=== PATIENT | male | born 1955 | race Caucasian/White ===

== ENCOUNTER 2016-11-13 23:44 | Emergency (ER) | payer OTHER ==
[2016-11-13] MEDS ORDERED: valACYclovir HCL 1000 MG TABLET PO ONE (23:52)
[2016-11-13] MEDS ORDERED: ACETAMINOPHEN WITH CODEINE 300MG/30MG TABLET PO ONE (23:52)
[2016-11-13] MEDS ORDERED: ACYCLOVIR 400 MG TABLET ONE (23:54)
[2016-11-13] MEDS ORDERED: ACETAMINOPHEN WITH CODEINE 300MG/30MG TABLET ONE (23:54)
[2016-11-13] MEDS ORDERED: valACYclovir HCL 500 MG TABLET (FP) ONE (23:55)
[2016-11-13 23:56] VITALS: BP 144/92; PULSE 70; TEMP 97.8; BMI 34.2
--- NOTE | 2016-11-13 23:58 | PDOC ---
History of Present Illness - General Chief Complaint: Rash Stated Complaint: BURNING RASH Time Seen by Provider: 11/13/16 23:52 History Source: Patient Exam Limitations: No Limitations - History of Present Illness Initial Comments: 11/13/16 23:54 61 Y M HX HTN, BI-POLAR; ITCHY RASH ON LT CHEST FROM BACK TO NIPPLE SINCE SATURDAY. NOW PAIN (THROBBING). NO FEVER. NO SOB. NO OTHER SYMPTOMS Past History - Past Medical History Allergies/Adverse Reactions: Allergies Allergy/AdvReac Type Severity Reaction Status Date / Time No Known Allergies Allergy Verified 11/13/16 23:48 Home Medications: Ambulatory Orders Divalproex *ER* [Depakote *ER* -] 1,500 mg PO HS 05/08/13 Venlafaxine-Xr [Effexor Xr] 225 mg PO DAILY 05/08/13 Mirabegron [Myrbetriq] 50 mg PO DAILY 10/06/15 Aspirin Coated [Ecotrin -] 81 mg PO DAILY 03/05/16 Risperidone [Risperdal] 1 mg PO BID 03/05/16 Cholecalciferol (Vitamin D3) [Vitamin D3] 2,000 unit PO DAILY capsule 09/24/16 Valacyclovir HCl [Valtrex -] 1,000 mg PO TID #7 tablet 11/13/16 Anemia: No Asthma: No Cancer: Yes (Prostate Dx 02/2016) Cardiac Disorders: Yes (Angina) CVA: No COPD: No CHF: No Dementia: No Diabetes: No GI Disorders: Yes (Diverticulitis) Disorders: Yes (BPH OVERACTIVE BLADDER,PROSTATE CA) HTN: Yes (DX 2010) Hypercholesterolemia: Yes (DX 1995) Liver Disease: No Psychiatric Problems: Yes (BIPOLAR) Seizures: No Thyroid Disease: No - Surgical History Abdominal Surgery: No Appendectomy: No Cardiac Surgery: No (Cardiac Cath 2012) Cholecystectomy: No Lung Surgery: No Neurologic Surgery: No Orthopedic Surgery: Yes (Left Foot Surgery) - Psycho/Social/Smoking Cessation Hx Anxiety: No Suicidal Ideation: No Smoking History: Never smoked Have you smoked in the past 12 months: No Hx Alcohol Use: No Drug/Substance Use Hx: No Substance Use Type: None Hx Substance Use Treatment: No Review of Systems - Review of Systems Able to Perform ROS?: Yes Is the patient limited Swedish proficient: No Constitutional: No: Symptoms Reported HEENTM: No: Symptoms Reported Respiratory: No: Symptoms reported Cardiac (ROS): No: Symptoms Reported ABD/GI: No: Symptoms Reported : No: Symptoms Reported Musculoskeletal: No: Symptoms Reported Integumentary: Yes: Symptoms Reported, See HPI All Other Systems: Reviewed and Negative *Physical Exam - Physical Exam General Appearance: Yes: Nourished, Appropriately Dressed. No: Apparent Distress HEENT: positive: Normal ENT Inspection Neck: positive: Supple. negative: Tender Respiratory/Chest: positive: Chest Tender (T4 DERMATOME), Lungs Clear, Normal Breath Sounds. negative: Respiratory Distress Cardiovascular: positive: Regular Rhythm, Regular Rate Integumentary: positive: Rash (ERYTHEMATOUS RASH T4 DERMATOME. NO BLISTERS. INVOLVING LT NIPPLE) Neurologic: positive: Fully Oriented, Alert, Normal Mood/Affect, Normal Response , Motor Strength 5/5 *DC/Admit/Observation/Transfer Diagnosis at time of Disposition: Herpes zoster Qualifiers: Herpes zoster complications: without complications Qualified Code(s): B02.9 - Zoster without complications - Discharge Dispostion Disposition: HOME Condition at time of disposition: Stable - Prescriptions Prescriptions: Valacyclovir HCl [Valtrex -] 1,000 mg PO TID #7 tablet - Patient Instructions Additional Instructions: TAKE MEDICATIONS PRESCRIBED CALL DR. FERREIRA TOMORROW RETURN IF FEVER, NEW RASHES.
== END 2016-11-14 | disposition home or self-care (01) ==
LOC: FER 23:44
DX: B02.9 Zoster without complications (principal); F31.9 Bipolar disorder, unspecified; Z85.46 Personal history of malignant neoplasm of prostate; I10 Essential (primary) hypertension; E78.00 Pure hypercholesterolemia, unspecified; I20.9 Angina pectoris, unspecified; N40.0 Benign prostatic hyperplasia without lower urinary tract symptoms
CPT/HCPCS: 99281-25

== ENCOUNTER 2018-06-16 09:02 | Day surgery (SDC) | payer BC ==
[2018-06-12 10:56] VITALS: BMI 34.9
[2018-06-16] MEDS ORDERED: PROPOFOL 20 ML ONE ×2 (09:09)
[2018-06-16] MEDS ORDERED: LIDOCAINE HCL/PF 2% SDV 5ML VIAL ONE (09:10)
[2018-06-16 11:09] VITALS: TEMP 98.4
[2018-06-16 11:15] VITALS: BP 118/72; PULSE 72
== END 2018-06-16 11:19 | disposition home or self-care (01) ==
LOC: FASU-ENDO 09:02
PROVIDERS: ATTEND Internal Medicine Gastroenterology
PROC: 0DJD8ZZ Inspection of Lower Intestinal Tract, Via Natural or Artificial Opening Endoscopic (ICD-10-PCS; principal; 2018-06-16 10:08)
DX: Z12.11 Encounter for screening for malignant neoplasm of colon (principal); Z80.0 Family history of malignant neoplasm of digestive organs; Z83.71 Family history of colonic polyps; K57.30 Diverticulosis of large intestine without perforation or abscess without bleeding

== ENCOUNTER 2019-08-27 18:45 | Inpatient (IN) | payer BC ==
[2019-08-27 18:58] VITALS: BMI 36.9
[2019-08-27 19:32] LABS: BASO % 0.5 % (0-2.0); EOS % 4.1 % (0-4.5); HEMATOCRIT 40.9 % (35.4-49); HEMOGLOBIN 13.7 GM/dl (11.7-16.9); LYMPH % 24.4 % (8-40); MCH 31.8 pg (25.7-33.7); MCHC 33.6 g/dl (32.0-35.9); MEAN CELL VOLUME 94.7 fl (80-96); MEAN PLT VOLUME 8.8 fl (7.5-11.1); PLATELET COUNT 248 K/MM3 (134-434); RBC 4.32 M/mm3 (4.00-5.60); WHITE BLOOD COUNT 6.3 K/mm3 (4.0-10.8)
[2019-08-27 19:41] LABS: ALBUMIN 3.8 g/dl (3.4-5.0); BILIRUBIN,TOTAL 0.5 mg/dl (0.2-1); CREATININE 0.8 mg/dl (0.55-1.3); POTASSIUM 4.3 mmol/L (3.5-5.1); TOT PROT 6.6 g/dl (6.4-8.2)
--- NOTE | 2019-08-27 21:44 | PDOC ---
Documentation entered by Anya Jennings SCRIBE, acting as scribe for Nathaly Brasher MD. Nathaly Brasher MD: This documentation has been prepared by the myibe, Anya Jennings SCRIBE, under my direction and personally reviewed by me in its entirety. I confirm that the documentation accurately reflects all work, treatment, procedures, and medical decision making performed by me. History of Present Illness - General Chief Complaint: Lightheaded Stated Complaint: NAUSEA, LIGHTHEADED Time Seen by Provider: 08/27/19 19:18 History Source: Patient Exam Limitations: No Limitations - History of Present Illness Initial Comments: 08/27/19 21:02 The patient is a 64-year-old male with a past medical history significant for HTN, Bipolar disorder, HLD, pre-DM, who presents to the emergency department with abdominal discomfort, lightheadedness, and diaphoretic. The patient reports on Saturday he was at work when his boss told him that he looked pale and sweaty. The patient reports later that day he was waiting for the train when he took off his jacket, noticed he has sweated through his clothes. The patient reports a similar incident on Saturday when he was at [employer]abaptism, the patient states he felt clammy and had abdominal discomfort. The patient reports all he had to eat Saturday was some salad. The patient reports he had some chills yesterday. The patient states since this morning, hes been feeling heaviness on his eyes, fogginess, dizziness, nauseous (this morning), intermittent episodes of abdominal upsetting, and the feeling that something is not right. The patient reports following up with his PCP for palpitation. He was referred to a lip and gate builder (Dr. Lau), where he had an echo and stress test done ( 6wks ago). The patient reports he was told he needed a holter monitor, however states the office never called to make an appointment. Denies chest pain. Denies vomiting or diarrhea. Allergies: NKA Family history: Heart problems. Social history: Remote history of tobacco use. PCP: Dr. West Cards: Dr. Lau Past History - Past Medical History Allergies/Adverse Reactions: Allergies Allergy/AdvReac Type Severity Reaction Status Date / Time No Known Allergies Allergy Verified 08/27/19 18:49 Home Medications: Ambulatory Orders Divalproex *ER* [Depakote *ER* -] 1,500 mg PO DAILY 05/08/13 Venlafaxine-Xr [Effexor Xr] 150 mg PO DAILY 05/08/13 Aspirin Coated [Ecotrin -] 81 mg PO DAILY 03/05/16 Risperidone [Risperdal] 1 mg PO BID 03/05/16 Cholecalciferol (Vitamin D3) [Vitamin D3] 2,000 unit PO DAILY capsule 09/24/16 Atorvastatin Ca [Lipitor] 20 mg PO HS 06/12/18 Anemia: No Asthma: No Cancer: Yes (Prostate Dx 02/2016) Cardiac Disorders: Yes (Angina) CVA: No COPD: No CHF: No Dementia: No Diabetes: No GI Disorders: Yes (Diverticulitis) Disorders: Yes (BPH OVERACTIVE BLADDER,PROSTATE CA) HTN: Yes (DX 2010) Hypercholesterolemia: Yes (DX 1995) Liver Disease: No Psychiatric Problems: Yes (BIPOLAR) Seizures: No Thyroid Disease: No - Surgical History Abdominal Surgery: No Appendectomy: No Cardiac Surgery: (Cardiac Cath 2012) Cholecystectomy: No Lung Surgery: No Neurologic Surgery: No Orthopedic Surgery: Yes (Left Foot Surgery,RIGHT TOE SURGERY) - Psycho Social/Smoking Cessation Hx Smoking History: Never smoked Have you smoked in the past 12 months: No Information on smoking cessation initiated: No Hx Alcohol Use: No (STOPPED AT 39 YRS OF AGE) Drug/Substance Use Hx: No Substance Use Type: None Hx Substance Use Treatment: No Review of Systems - Review of Systems Able to Perform ROS?: Yes Comments:: 08/27/19 21:03 Constitutional - +diaphoretic. Pt denies Fever, Chills, weakness, HEENT: +eye heaviness. denies vision changes, sore throat Respiratory: Denies cough, sob, hemoptysis Cardiac: denies chest pain, palpitations, lightheadedness, leg swelling Abd/GI: +abdominal discomfort and nausea. denies abd pain, vomiting, blood per rectum, melena, diarrhea : denies dysuria, frequency, discharge Musculoskeletal - denies back pain, joint swelling skin - denies bruising, erythema, rash Neurological: +lightheadedness, fogginess. denies headache, numbness, focal weakness, tingling, ataxia, weakness hematologic: denies anemia, easy bruising, easy bleeding *Physical Exam - Vital Signs Last Vital Signs Temp Pulse Resp BP Pulse Ox 98.4 F 74 18 117/76 98 08/27/19 18:45 08/27/19 18:45 08/27/19 18:45 08/27/19 18:45 08/27/19 18:45 - Physical Exam 08/27/19 20:33 GENERAL: Awake, alert and oriented. The patient is in no acute distress. ENT: Ears normal, nares patent, oropharynx clear without exudates. Moist mucous membranes. NECK: Normal range of motion, supple, no nuchal rigidity LUNGS: Breath sounds equal, clear to auscultation bilaterally. No wheezes, and no crackles. HEART: Regular rate and rhythm, normal S1 and S2 without murmur, rub or gallop. ABDOMEN: Soft, nontender, normoactive bowel sounds. No guarding, no rebound. No masses palpable. EXTREMITIES: Normal range of motion, no edema. NEUROLOGICAL: Answering all questions. Cranial nerves II through XII grossly intact. Normal speech. No focal neurological deficits. SKIN: Warm, Dry, normal turgor, no rashes or lesions noted. ED Treatment Course - LABORATORY CBC & Chemistry Diagram: 08/27/19 19:15 08/27/19 19:15 - ADDITIONAL ORDERS Additional order review: Laboratory Results 08/27/19 08/27/19 19:30 19:15 Sodium 137 Potassium 4.3 Chloride 104 Carbon Dioxide 27 Anion Gap 6 L BUN 16.0 Creatinine 0.8 Est GFR (CKD-EPI)AfAm 109.42 Est GFR (CKD-EPI)NonAf 94.41 Random Glucose 86 Calcium 9.0 Total Bilirubin 0.5 AST 27 ALT 51 Alkaline Phosphatase 41 L Creatine Kinase 82 Total Protein 6.6 Albumin 3.8 Urine Color Yellow Urine Appearance Clear Urine pH 5.5 Urine Protein Negative Urine Glucose (UA) Negative Urine Ketones Negative Urine Blood Trace-lysed Urine Nitrite Negative Urine Bilirubin Negative Urine Urobilinogen 0.2 Ur Leukocyte Esterase Negative Urine RBC 2-5 Urine WBC 0-2 08/27/19 19:15 RBC 4.32 MCV 94.7 MCHC 33.6 RDW 13.0 MPV 8.8 Neutrophils % 60.0 Lymphocytes % 24.4 Monocytes % 11.0 H Eosinophils % 4.1 Basophils % 0.5 Medical Decision Making - Medical Decision Making 08/27/19 19:59 EKG: NSR rate of 68 bpm, axis nml, intervals nml, no st elevation or depression , t waves upright 08/28/19 02:31 Laboratory Tests 08/27/19 08/27/19 08/27/19 19:15 19:15 19:15 Hgb 13.7 Hct 40.9 Creatine Kinase 82 Troponin I < 0.03 Lipase 08/27/19 19:15 Hgb Hct Creatine Kinase Troponin I Lipase 449 H Labs reveal elevated lipase Pt with new symptoms of diaphoresis and upper abdominal pain Will admit given pt risk factors and the possibility that this is an anginal equivalent Case reviewed with NILDA Tadeo She recommends CT scan (Given elevation in Lipase) Will order Clinical impression: Pre-syncope Elevated lipase Discharge - Discharge Information Problems reviewed: Yes Clinical Impression/Diagnosis: Pre-syncope, Elevated lipase Condition: Stable - Admission Yes - Follow up/Referral - Patient Discharge Instructions - Post Discharge Activity
--- NOTE | 2019-08-27 22:43 | HP ---
CHIEF COMPLAINT: PCP: HISTORY OF PRESENT ILLNESS: ER course was notable for: (1) (2) (3) Recent Travel: PAST MEDICAL HISTORY: PAST SURGICAL HISTORY: Social History: Smoking: Alcohol: Drugs: Allergies No Known Allergies Allergy (Verified 08/27/19 18:49) HOME MEDICATIONS: Home Medications Medication Instructions Recorded Divalproex *ER* [Depakote *ER* -] 1,500 mg PO DAILY 05/08/13 Venlafaxine-Xr [Effexor Xr] 150 mg PO DAILY 05/08/13 Aspirin Coated [Ecotrin -] 81 mg PO DAILY 03/05/16 Risperidone [Risperdal] 1 mg PO BID 03/05/16 Cholecalciferol (Vitamin D3) 2,000 unit PO DAILY capsule 09/24/16 [Vitamin D3] Atorvastatin Ca [Lipitor] 20 mg PO HS 06/12/18 REVIEW OF SYSTEMS CONSTITUTIONAL: Absent: fever, chills, diaphoresis, generalized weakness, malaise, loss of appetite, weight change HEENT: Absent: rhinorrhea, nasal congestion, throat pain, throat swelling, difficulty swallowing, mouth swelling, ear pain, eye pain, visual changes CARDIOVASCULAR: Absent: chest pain, syncope, palpitations, irregular heart rate, lightheadedness , peripheral edema RESPIRATORY: Absent: cough, shortness of breath, dyspnea with exertion, orthopnea, wheezing, stridor, hemoptysis GASTROINTESTINAL: Absent: abdominal pain, abdominal distension, nausea, vomiting, diarrhea, constipation, melena, hematochezia GENITOURINARY: Absent: dysuria, frequency, urgency, hesitancy, hematuria, flank pain, genital pain MUSCULOSKELETAL: Absent: myalgia, arthralgia, joint swelling, back pain, neck pain SKIN: Absent: rash, itching, pallor HEMATOLOGIC/IMMUNOLOGIC: Absent: easy bleeding, easy bruising, lymphadenopathy, frequent infections ENDOCRINE: Absent: unexplained weight gain, unexplained weight loss, heat intolerance, cold intolerance NEUROLOGIC: Absent: headache, focal weakness or paresthesias, dizziness, unsteady gait, seizure, mental status changes, bladder or bowel incontinence PSYCHIATRIC: Absent: anxiety, depression, suicidal or homicidal ideation, hallucinations. PHYSICAL EXAMINATION Vital Signs - 24 hr 08/27/19 08/27/19 18:45 21:08 Temperature 98.4 F 97.8 F Pulse Rate 74 Pulse Rate [ 69 Left Apical] Respiratory 18 16 Rate Blood Pressure 117/76 Blood Pressure 107/58 L [Right Arm] O2 Sat by Pulse 98 98 Oximetry (%) GENERAL: Awake, alert, and fully oriented, in no acute distress. HEAD: Normal with no signs of trauma. EYES: Pupils equal, round and reactive to light, extraocular movements intact, sclera anicteric, conjunctiva clear. No lid lag. EARS, NOSE, THROAT: Ears normal, nares patent, oropharynx clear without exudates. Moist mucous membranes. NECK: Normal range of motion, supple without lymphadenopathy, JVD, or masses. LUNGS: Breath sounds equal, clear to auscultation bilaterally. No wheezes, and no crackles. No accessory muscle use. HEART: Regular rate and rhythm, normal S1 and S2 without murmur, rub or gallop. ABDOMEN: Soft, nontender, not distended, normoactive bowel sounds, no guarding, no rebound, no masses. No hepatomegaly or splenomegaly. MUSCULOSKELETAL: Normal range of motion at all joints. No bony deformities or tenderness. No CVA tenderness. UPPER EXTREMITIES: 2+ pulses, warm, well-perfused. No cyanosis. No clubbing. No peripheral edema. LOWER EXTREMITIES: 2+ pulses, warm, well-perfused. No calf tenderness. No peripheral edema. NEUROLOGICAL: Cranial nerves II-XII intact. Normal speech. Normal gait. PSYCHIATRIC: Cooperative. Good eye contact. Appropriate mood and affect. SKIN: Warm, dry, normal turgor, no rashes or lesions noted, normal capillary refill. Laboratory Results - last 24 hr 08/27/19 08/27/19 08/27/19 19:15 19:15 19:15 WBC 6.3 RBC 4.32 Hgb 13.7 Hct 40.9 MCV 94.7 MCH 31.8 MCHC 33.6 RDW 13.0 Plt Count 248 MPV 8.8 Absolute Neuts (auto) 3.8 Neutrophils % 60.0 Lymphocytes % 24.4 Monocytes % 11.0 H Eosinophils % 4.1 Basophils % 0.5 Sodium 137 Potassium 4.3 Chloride 104 Carbon Dioxide 27 Anion Gap 6 L BUN 16.0 Creatinine 0.8 Est GFR (CKD-EPI)AfAm 109.42 Est GFR (CKD-EPI)NonAf 94.41 Random Glucose 86 Calcium 9.0 Total Bilirubin 0.5 AST 27 ALT 51 Alkaline Phosphatase 41 L Creatine Kinase 82 Troponin I < 0.03 Total Protein 6.6 Albumin 3.8 Lipase Urine Color Urine Appearance Urine pH Urine Protein Urine Glucose (UA) Urine Ketones Urine Blood Urine Nitrite Urine Bilirubin Urine Urobilinogen Ur Leukocyte Esterase Urine RBC Urine WBC 08/27/19 08/27/19 19:15 19:30 WBC RBC Hgb Hct MCV MCH MCHC RDW Plt Count MPV Absolute Neuts (auto) Neutrophils % Lymphocytes % Monocytes % Eosinophils % Basophils % Sodium Potassium Chloride Carbon Dioxide Anion Gap BUN Creatinine Est GFR (CKD-EPI)AfAm Est GFR (CKD-EPI)NonAf Random Glucose Calcium Total Bilirubin AST ALT Alkaline Phosphatase Creatine Kinase Troponin I Total Protein Albumin Lipase 449 H Urine Color Yellow Urine Appearance Clear Urine pH 5.5 Urine Protein Negative Urine Glucose (UA) Negative Urine Ketones Negative Urine Blood Trace-lysed Urine Nitrite Negative Urine Bilirubin Negative Urine Urobilinogen 0.2 Ur Leukocyte Esterase Negative Urine RBC 2-5 Urine WBC 0-2 ASSESSMENT/PLAN:
[2019-08-27] MEDS ORDERED: SODIUM CHLORIDE 1,000 ML IV SCH (23:45)
[2019-08-28] MEDS: HEPARIN NA (PORCINE) 5,000 UNITS/ML 1ML VIAL SQ SCH ×3 (06:27→21:42)
[2019-08-28 07:44] LABS: BASO % 0.5 % (0-2.0); EOS % 4.1 % (0-4.5); HEMATOCRIT 41.9 % (35.4-49); HEMOGLOBIN 13.5 GM/dl (11.7-16.9); LYMPH % 24.2 % (8-40); MCH 30.7 pg (25.7-33.7); MCHC 32.2 g/dl (32.0-35.9); MEAN CELL VOLUME 95.3 fl (80-96); MEAN PLT VOLUME 8.8 fl (7.5-11.1); MONO % 10.8 % (3.8-10.2); NEUT % 60.4 % (42.8-82.8); PLATELET COUNT 243 K/MM3 (134-434); WHITE BLOOD COUNT 6.3 K/mm3 (4.0-10.8)
[2019-08-28 08:03] LABS: CALCIUM 9.1 mg/dl (8.5-10); CREATININE 0.8 mg/dl (0.55-1.3); MAGNESIUM 2.1 mg/dL (1.8-2.4)
[2019-08-28] MEDS ORDERED: VENLAFAXINE HCL 150 MG E.R. CAPSULE PO SCH (10:00)
[2019-08-28] MEDS: risperiDONE 1 MG TABLET (FP) PO SCH ×2 (10:11→21:42)
[2019-08-28] MEDS: VALSARTAN 80 MG TABLET (UD) PO SCH (10:11)
[2019-08-28] MEDS: FENOFIBRIC ACID 135 MG CAP PO SCH (10:11)
[2019-08-28] MEDS: DIVALPROEX NA *ER* EXTEND REL 500 MG TABLET.SA (FP) PO SCH (10:12)
[2019-08-28] MEDS: VENLAFAXINE HCL 75 MG E.R. CAPSULES (FP) PO SCH (10:12)
[2019-08-28] MEDS: ASPIRIN COATED 81 MG TABLET.EC PO SCH (10:12)
--- NOTE | 2019-08-28 13:26 | EKG ---
Test Reason : Blood Pressure : / mmHG Vent. Rate : 068 BPM Atrial Rate : 068 BPM P-R Int : 174 ms QRS Dur : 088 ms QT Int : 390 ms P-R-T Axes : 035 046 053 degrees QTc Int : 414 ms NORMAL SINUS RHYTHM NORMAL ECG NO PREVIOUS ECGS AVAILABLE Confirmed by CORKY BROWN MD ([id number]) on 08/28/2019 1:25:59 PM Referred By: DR CARPENTER Confirmed By:CORKY BROWN MD
--- NOTE | 2019-08-28 14:03 | HP ---
Documentation entered by Ashlee Christianson SCRIBE, acting as scribe for Sabina Tadeo NP. CHIEF COMPLAINT: PCP: Dr. West Cardiology: Dr. Lau HISTORY OF PRESENT ILLNESS: The patient is a 64-year-old male with a PMH significant for HTN, HLD, orthostatic hypotension, s/p cardiac cath 2013 (reportedly clean coronaries), diverticulitis, BPH, bipolar disorder, and remote substance abuse. Patient presented to the ED for several episodes of nausea, lightheadedness, and diaphoresis over the past 5 days. On Saturday afternoon patient was at work when his boss said he looked very pale and was sweating profusely. Patient states he always sweats a lot so this did not strike him as out of the ordinary but he did notice he sweat through his clothes. On Saturday morning he was at [employer] when he started feeling clammy, nauseous, and felt like he was going to pass out. Yesterday patient got up to go to work, and when stepping out of the shower he felt the same symptoms of nausea and lightheadedness. He laid down for awhile, and then decided to come to the ED. Six weeks ago patient had an echo and stress test with Dr. Lau and was told he should have Holter monitoring. He called the tacking machine operator's office several times but the arrangements were never made. Patient had a syncopal episode about 30 years ago and was diagnosed with orthostatic hypotension after a positive tilt table test. He cannot recall if he was put on medication. Patient denies fever, sweats, chills. Denies abdominal pain, vomiting, diarrhea , constipation. Denies chest pain, palpitations, SOB, MCKEON, orthopnea, and lower extremity swelling. Denies recent illness. Denies recent prescription medication changes. Denies changes in speech, gait, paresthesias, weakness, no reported neuro focal deficits. ER course was notable for: (1) Troponin neg x 3 (2) CTAP: unremarkable Family History: Mother (age 80) of diverticulitis Father (age 72) of CAD and diabetes Older brothers both had open heart surgery and have pacemakers. 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 Allergies No Known Allergies Allergy (Verified 08/27/19 18:49) HOME MEDICATIONS: Home Medications Medication Instructions Recorded Divalproex *ER* [Depakote *ER* -] 1,500 mg PO DAILY 05/08/13 Venlafaxine-Xr [Effexor Xr] 150 mg PO DAILY 05/08/13 Aspirin Coated [Ecotrin -] 81 mg PO DAILY 03/05/16 Risperidone [Risperdal] 1 mg PO BID 03/05/16 Cholecalciferol (Vitamin D3) 2,000 unit PO DAILY capsule 09/24/16 [Vitamin D3] Atorvastatin Ca [Lipitor] 20 mg PO HS 06/12/18 REVIEW OF SYSTEMS CONSTITUTIONAL: Absent: fever, chills, generalized weakness, , weight change HEENT: Absent: rhinorrhea, nasal congestion, throat pain, throat swelling, difficulty swallowing, mouth swelling, ear pain, eye pain, visual changes CARDIOVASCULAR: +diaphoresis, lightheadedness Absent: chest pain, syncope, palpitations, irregular heart rate, lightheadedness , peripheral edema RESPIRATORY: Absent: cough, shortness of breath, dyspnea with exertion, orthopnea, wheezing, stridor, hemoptysis GASTROINTESTINAL: +nausea, early satiety Absent: abdominal distension, vomiting, diarrhea, constipation, melena, hematochezia GENITOURINARY: Absent: dysuria, frequency, urgency, hesitancy, hematuria, flank pain, genital pain MUSCULOSKELETAL: Absent: myalgia, arthralgia, joint swelling, back pain, neck pain SKIN: Absent: rash, itching, pallor HEMATOLOGIC/IMMUNOLOGIC: Absent: easy bleeding, easy bruising, lymphadenopathy, frequent infections ENDOCRINE: Absent: unexplained weight gain, unexplained weight loss, heat intolerance, cold intolerance NEUROLOGIC: Absent: headache, focal weakness or paresthesias, dizziness, unsteady gait, seizure, mental status changes, bladder or bowel incontinence PSYCHIATRIC: Absent: anxiety, depression, suicidal or homicidal ideation, hallucinations. PHYSICAL EXAMINATION Vital Signs - 24 hr 08/27/19 08/27/19 08/27/19 18:45 21:08 23:45 Temperature 98.4 F 97.8 F 98.1 F Pulse Rate 74 69 Pulse Rate [ 69 Left Apical] Respiratory 18 16 18 Rate Blood Pressure 117/76 139/70 Blood Pressure 107/58 L [Right Arm] O2 Sat by Pulse 98 98 Oximetry (%) 08/28/19 08/28/19 04:00 08:24 Temperature 97.9 F Pulse Rate 65 Pulse Rate [ Left Apical] Respiratory 18 18 Rate Blood Pressure 132/72 Blood Pressure [Right Arm] O2 Sat by Pulse 96 96 Oximetry (%) GENERAL: A&Ox3, in no apparent distress. Answers questions appropriately. Pale, appears fatigued. HEAD: Normal with no signs of trauma. EYES: Pupils equal, round and reactive to light, extraocular movements intact, sclera anicteric, conjunctiva clear. No lid lag. EARS, NOSE, THROAT: Ears normal, nares patent, oropharynx clear without exudates. Moist mucous membranes. LUNGS: Breath sounds equal, clear to auscultation bilaterally. No wheezes, and no crackles. No accessory muscle use. HEART: Regular rate and rhythm, normal S1 and S2 ABDOMEN: Soft, nontender, not distended, normoactive bowel sounds, no guarding, no rebound tenderness UPPER EXTREMITIES: 2+ pulses, warm, well-perfused. No cyanosis. No clubbing. No peripheral edema. LOWER EXTREMITIES: 2+ pulses, warm, well-perfused. No calf tenderness. No peripheral edema. NEUROLOGICAL: Cranial nerves II-XII intact. Normal speech. Gait was not observed. SKIN: Warm, sweaty Laboratory Results - last 24 hr 08/27/19 08/27/19 08/27/19 19:15 19:15 19:15 WBC 6.3 RBC 4.32 Hgb 13.7 Hct 40.9 MCV 94.7 MCH 31.8 MCHC 33.6 RDW 13.0 Plt Count 248 MPV 8.8 Absolute Neuts (auto) 3.8 Neutrophils % 60.0 Lymphocytes % 24.4 Monocytes % 11.0 H Eosinophils % 4.1 Basophils % 0.5 Sodium 137 Potassium 4.3 Chloride 104 Carbon Dioxide 27 Anion Gap 6 L BUN 16.0 Creatinine 0.8 Est GFR (CKD-EPI)AfAm 109.42 Est GFR (CKD-EPI)NonAf 94.41 POC Glucometer Random Glucose 86 Calcium 9.0 Magnesium Total Bilirubin 0.5 AST 27 ALT 51 Alkaline Phosphatase 41 L Creatine Kinase 82 Troponin I < 0.03 Total Protein 6.6 Albumin 3.8 Lipase Urine Color Urine Appearance Urine pH Urine Protein Urine Glucose (UA) Urine Ketones Urine Blood Urine Nitrite Urine Bilirubin Urine Urobilinogen Ur Leukocyte Esterase Urine RBC Urine WBC 08/27/19 08/27/19 08/28/19 19:15 19:30 01:22 WBC RBC Hgb Hct MCV MCH MCHC RDW Plt Count MPV Absolute Neuts (auto) Neutrophils % Lymphocytes % Monocytes % Eosinophils % Basophils % Sodium Potassium Chloride Carbon Dioxide Anion Gap BUN Creatinine Est GFR (CKD-EPI)AfAm Est GFR (CKD-EPI)NonAf POC Glucometer Random Glucose Calcium Magnesium Total Bilirubin AST ALT Alkaline Phosphatase Creatine Kinase Troponin I < 0.02 Total Protein Albumin Lipase 449 H Urine Color Yellow Urine Appearance Clear Urine pH 5.5 Urine Protein Negative Urine Glucose (UA) Negative Urine Ketones Negative Urine Blood Trace-lysed Urine Nitrite Negative Urine Bilirubin Negative Urine Urobilinogen 0.2 Ur Leukocyte Esterase Negative Urine RBC 2-5 Urine WBC 0-2 08/28/19 08/28/19 08/28/19 06:24 06:52 06:52 WBC 6.3 RBC 4.40 Hgb 13.5 Hct 41.9 MCV 95.3 MCH 30.7 MCHC 32.2 RDW 13.0 Plt Count 243 MPV 8.8 Absolute Neuts (auto) 3.8 Neutrophils % 60.4 Lymphocytes % 24.2 Monocytes % 10.8 H Eosinophils % 4.1 Basophils % 0.5 Sodium 137 Potassium 4.0 Chloride 105 Carbon Dioxide 25 Anion Gap 7 L BUN 16.0 Creatinine 0.8 Est GFR (CKD-EPI)AfAm 109.42 Est GFR (CKD-EPI)NonAf 94.41 POC Glucometer 87 Random Glucose 87 Calcium 9.1 Magnesium 2.1 Total Bilirubin AST ALT Alkaline Phosphatase Creatine Kinase Troponin I Total Protein Albumin Lipase Urine Color Urine Appearance Urine pH Urine Protein Urine Glucose (UA) Urine Ketones Urine Blood Urine Nitrite Urine Bilirubin Urine Urobilinogen Ur Leukocyte Esterase Urine RBC Urine WBC 08/28/19 08:20 WBC RBC Hgb Hct MCV MCH MCHC RDW Plt Count MPV Absolute Neuts (auto) Neutrophils % Lymphocytes % Monocytes % Eosinophils % Basophils % Sodium Potassium Chloride Carbon Dioxide Anion Gap BUN Creatinine Est GFR (CKD-EPI)AfAm Est GFR (CKD-EPI)NonAf POC Glucometer Random Glucose Calcium Magnesium Total Bilirubin AST ALT Alkaline Phosphatase Creatine Kinase Troponin I < 0.03 Total Protein Albumin Lipase Urine Color Urine Appearance Urine pH Urine Protein Urine Glucose (UA) Urine Ketones Urine Blood Urine Nitrite Urine Bilirubin Urine Urobilinogen Ur Leukocyte Esterase Urine RBC Urine WBC ASSESSMENT/PLAN: 64-year-old male with a PMH significant for HTN, HLD, orthostatic hypotension, s /p cardiac cath 2013 (reportedly clean coronaries), diverticulitis, BPH, bipolar disorder, and remote substance abuse. Admitted for several near syncopal episodes. Near syncope Assessment --three episodes over past 5 days --troponins negative x 3 --ECG: no signs of acute ischemic event --Echo and stress done 6 weeks ago, apparently unremarkable --CTAP: no acute pathology --no fever, no leukocytosis, UA negative, CXR clear Plan --continuous telemetry monitoring --cardiology consult --CT head --US carotids --thyroid studies --rapid flu Orthostatic hypotension --diagnosed about 30 years ago after a positive tilt table test, has not been on medication --not orthostatic this morning Hypertension --continue ToprolXL Hyperlipidemia --continue atorvastatin Diverticulitis --no issues BPH --continue tamsulosin Bipolar disorder --continue depakote, risperdal --no recent medication changes FEN Fluids: PO intake adequate Electrolytes: replete as indicated Nutrition: regular diet DVT prophylaxis: subq heparin Dispo: continues to require inpatient care. Full code. Visit type - Emergency Visit Emergency Visit: Yes ED Registration Date: 08/27/19 Care time: The patient presented to the Emergency Department on the above date and was hospitalized for further evaluation of their emergent condition. - New Patient This patient is new to me today: Yes Date on this admission: 08/28/19 - Critical Care Critical Care patient: No Sabina Tadeo PLANNER SCHEDULER: This documentation has been prepared by the Sammy stephen Maria, SCRIBE, under my direction and personally reviewed by me in its entirety. I confirm that the documentation accurately reflects all work, treatment, procedures, and medical decision making performed by me.
--- NOTE | 2019-08-28 14:28 | CON.CARD ---
Consult Consult Specialty:: Cardiology Referred by:: Medicine Reason for Consultation:: dizziness - History of Present Illness Chief Complaint: dizziness History of Present Illness: 64M h/o HTN, HLD, orthostatic hypotension, bipolar disorder p/w nausea, near syncope, diaphoresis for the last week. Has had episodes where he feels clammy , nauseated and about to pass out, no syncope, vomiting, diarrhea. Recently had echo and stress test with Dr Lau that were unremarkable, holter monitor planned but not done yet. Currently feels clammy, no chest pain, palps , dizziness, dyspnea. - Alcohol/Substance Use Hx Alcohol Use: No (STOPPED AT 39 YRS OF AGE) - Smoking History Smoking history: Never smoked Have you smoked in the past 12 months: No Home Medications - Allergies Allergies/Adverse Reactions: Allergies Allergy/AdvReac Type Severity Reaction Status Date / Time No Known Allergies Allergy Verified 08/27/19 18:49 - Home Medications Home Medications: Ambulatory Orders Divalproex *ER* [Depakote *ER* -] 1,500 mg PO DAILY 05/08/13 Venlafaxine-Xr [Effexor Xr] 150 mg PO DAILY 05/08/13 Aspirin Coated [Ecotrin -] 81 mg PO DAILY 03/05/16 Risperidone [Risperdal] 1 mg PO BID 03/05/16 Cholecalciferol (Vitamin D3) [Vitamin D3] 2,000 unit PO DAILY capsule 09/24/16 Atorvastatin Ca [Lipitor] 20 mg PO HS 06/12/18 Family Medical History Family History: Unremarkable Review of Systems - Review of Systems Constitutional: reports: No Symptoms Eyes: reports: No Symptoms HENT: reports: No Symptoms Neck: reports: No Symptoms Cardiovascular: reports: No Symptoms Respiratory: reports: No Symptoms Gastrointestinal: reports: No Symptoms Musculoskeletal: reports: No Symptoms Integumentary: reports: No Symptoms Neurological: reports: No Symptoms Endocrine: reports: No Symptoms Hematology/Lymphatic: reports: No Symptoms Psychiatric: reports: No Symptoms Vital Signs: Vital Signs Temperature 97.6 F 08/28/19 14:09 Pulse Rate 68 08/28/19 14:09 Respiratory Rate 18 08/28/19 14:09 Blood Pressure 124/69 08/28/19 14:09 O2 Sat by Pulse Oximetry (%) 96 08/28/19 08:24 Constitutional: Yes: Well Nourished, No Distress, Calm Eyes: Yes: Conjunctiva Clear, EOM Intact HENT: Yes: Atraumatic, Normocephalic Neck: Yes: Supple, Trachea Midline Respiratory: Yes: Regular, CTA Bilaterally Gastrointestinal: Yes: Normal Bowel Sounds, Soft Cardiovascular: Yes: Regular Rate and Rhythm JVD: No Carotid Bruit: No Heart Sounds: Yes: S1, S2 Edema: No Integumentary: No: Jaundice Neurological: Yes: Alert, Oriented Psychiatric: No: Agitated - Other Data Labs, Other Data: CBC, BMP 08/28/19 06:52 08/28/19 06:52 Troponin, BNP 08/27/19 08/28/19 08/28/19 19:15 01:22 08:20 Troponin I < 0.03 < 0.02 < 0.03 Troponin, BNP 08/27/19 08/28/19 08/28/19 19:15 01:22 08:20 Troponin I < 0.03 < 0.02 < 0.03 Assessment/Plan EKG: sinus, nl intervals, no ischemic changes mibi 06/2019 no ischemia echo 06/2019 nl LV function, no significant valvular pathology tele: sinus near syncope, nausea, diaphoresis - trop neg x 2, EKG no ischemic changes - less likely ACS - orthostatics negative - recent echo unremarkable - tele benign - carotid dopplers pending - history more consistent with vasovagal, less likely cardiac - will contact patient for outpatient holter as planned, although tele benign here and symptoms less consistent with arrhythmia - no further inpatient cardiac testing orthostatic hypotension - history of +tilt table test, orthostatics negative here HTN - cont toprol HLD - cont statin
[2019-08-28] MEDS ORDERED: SODIUM CHLORIDE 1,000 ML IV SCH (14:45)
[2019-08-28] MEDS ORDERED: ATORVASTATIN CA 20 MG TABLET (FP) PO SCH (22:00)
[2019-08-29] MEDS: HEPARIN NA (PORCINE) 5,000 UNITS/ML 1ML VIAL SQ SCH (06:51)
[2019-08-29 08:19] LABS: BASO % 0.5 % (0-2.0); HEMATOCRIT 36.2 % (35.4-49); HEMOGLOBIN 12.5 GM/dl (11.7-16.9); LYMPH % 28.9 % (8-40); MCHC 34.4 g/dl (32.0-35.9); MEAN PLT VOLUME 8.8 fl (7.5-11.1); MONO % 10.2 % (3.8-10.2); NEUT % 55.4 % (42.8-82.8); PLATELET COUNT 201 K/MM3 (134-434); RDW 12.9 % (11.9-15.9); WHITE BLOOD COUNT 4.3 K/mm3 (4.0-10.8)
[2019-08-29 08:46] LABS: ALBUMIN 3.3 g/dl (3.4-5.0); BILIRUBIN,TOTAL 0.5 mg/dl (0.2-1); CALCIUM 8.8 mg/dl (8.5-10); CREATININE 0.7 mg/dl (0.55-1.3); POTASSIUM 3.8 mmol/L (3.5-5.1); TOT PROT 5.6 g/dl (6.4-8.2)
--- NOTE | 2019-08-29 09:05 | DS ---
Physical Exam: SUBJECTIVE: Patient seen and examined OBJECTIVE: Vital Signs Period Temp Pulse Resp BP Sys/Herrmann Pulse Ox Last 24 Hr 97.4 F-98.2 F 57-70 18-19 111-133/56-90 96-97 PHYSICAL EXAM GENERAL: A&Ox3, in no apparent distress. Answers questions appropriately. HEAD: Normal with no signs of trauma. EYES: Pupils equal, round and reactive to light, extraocular movements intact, sclera anicteric, conjunctiva clear. No lid lag. EARS, NOSE, THROAT: Ears normal, nares patent, oropharynx clear without exudates. Moist mucous membranes. LUNGS: Breath sounds equal, clear to auscultation bilaterally. No wheezes, and no crackles. No accessory muscle use. HEART: Regular rate and rhythm, normal S1 and S2 ABDOMEN: Soft, nontender, not distended, normoactive bowel sounds, no guarding, no rebound tenderness UPPER EXTREMITIES: 2+ pulses, warm, well-perfused. No cyanosis. No clubbing. No peripheral edema. LOWER EXTREMITIES: 2+ pulses, warm, well-perfused. No calf tenderness. No peripheral edema. NEUROLOGICAL: Cranial nerves II-XII intact. Normal speech. Gait was not observed. LABS Laboratory Results - last 24 hr 08/28/19 08/28/19 08/28/19 06:52 06:52 12:05 WBC RBC Hgb Hct MCV MCH MCHC RDW Plt Count MPV Absolute Neuts (auto) Neutrophils % Lymphocytes % Monocytes % Eosinophils % Basophils % Sodium Potassium Chloride Carbon Dioxide Anion Gap BUN Creatinine Est GFR (CKD-EPI)AfAm Est GFR (CKD-EPI)NonAf POC Glucometer Random Glucose Hemoglobin A1c % 6.2 Lactic Acid 1.4 Calcium Magnesium Total Bilirubin AST ALT Alkaline Phosphatase Total Protein Albumin Lipase 162 TSH Free T4 Free T3 Influenza A (Rapid) Influenza B (Rapid) 08/28/19 08/28/19 08/28/19 12:05 12:05 13:50 WBC RBC Hgb Hct MCV MCH MCHC RDW Plt Count MPV Absolute Neuts (auto) Neutrophils % Lymphocytes % Monocytes % Eosinophils % Basophils % Sodium Potassium Chloride Carbon Dioxide Anion Gap BUN Creatinine Est GFR (CKD-EPI)AfAm Est GFR (CKD-EPI)NonAf POC Glucometer Random Glucose Hemoglobin A1c % Lactic Acid Calcium Magnesium Total Bilirubin AST ALT Alkaline Phosphatase Total Protein Albumin Lipase TSH 3.06 D Free T4 0.93 Free T3 2.4 Influenza A (Rapid) Negative Influenza B (Rapid) Negative 08/28/19 08/28/19 08/28/19 16:43 17:37 21:53 WBC RBC Hgb Hct MCV MCH MCHC RDW Plt Count MPV Absolute Neuts (auto) Neutrophils % Lymphocytes % Monocytes % Eosinophils % Basophils % Sodium Potassium Chloride Carbon Dioxide Anion Gap BUN Creatinine Est GFR (CKD-EPI)AfAm Est GFR (CKD-EPI)NonAf POC Glucometer 85 114 86 Random Glucose Hemoglobin A1c % Lactic Acid Calcium Magnesium Total Bilirubin AST ALT Alkaline Phosphatase Total Protein Albumin Lipase TSH Free T4 Free T3 Influenza A (Rapid) Influenza B (Rapid) 08/29/19 08/29/19 08/29/19 06:47 07:10 07:10 WBC 4.3 RBC 3.90 L Hgb 12.5 Hct 36.2 MCV 93.0 MCH 32.0 MCHC 34.4 RDW 12.9 Plt Count 201 MPV 8.8 Absolute Neuts (auto) 2.4 Neutrophils % 55.4 Lymphocytes % 28.9 Monocytes % 10.2 Eosinophils % 5.0 H Basophils % 0.5 Sodium 137 Potassium 3.8 Chloride 108 H Carbon Dioxide 24 Anion Gap 5 L BUN 13.0 Creatinine 0.7 Est GFR (CKD-EPI)AfAm 115.59 Est GFR (CKD-EPI)NonAf 99.73 POC Glucometer 89 Random Glucose 80 Hemoglobin A1c % Lactic Acid Calcium 8.8 Magnesium 2.0 Total Bilirubin 0.5 AST 17 ALT 33 Alkaline Phosphatase 34 L Total Protein 5.6 L Albumin 3.3 L Lipase TSH Free T4 Free T3 Influenza A (Rapid) Influenza B (Rapid) HOSPITAL COURSE: Date of Admission:08/27/19 Date of Discharge: 08/29/19 HISTORY OF PRESENT ILLNESS: The patient is a 64-year-old male with a PMH significant for HTN, HLD, orthostatic hypotension, s/p cardiac cath 2013 (reportedly clean coronaries), diverticulitis, BPH, bipolar disorder, and remote substance abuse. Patient presented to the ED for several episodes of nausea, lightheadedness, and diaphoresis over the past 5 days. On Saturday afternoon patient was at work when his boss said he looked very pale and was sweating profusely. Patient states he always sweats a lot so this did not strike him as out of the ordinary but he did notice he sweat through his clothes. On Saturday morning he was at [employer] when he started feeling clammy, nauseous, and felt like he was going to pass out. Yesterday patient got up to go to work, and when stepping out of the shower he felt the same symptoms of nausea and lightheadedness. He laid down for awhile, and then decided to come to the ED. Six weeks ago patient had an echo and stress test with Dr. Lau and was told he should have Holter monitoring. He called the coding team lead's office several times but the arrangements were never made. Patient had a syncopal episode about 30 years ago and was diagnosed with orthostatic hypotension after a positive tilt table test. He cannot recall if he was put on medication. Patient denies fever, sweats , chills. Denies abdominal pain, vomiting, diarrhea, constipation. Denies chest pain, palpitations, SOB, MCKEON, orthopnea, and lower extremity swelling. Denies recent illness. Denies recent prescription medication changes. Denies changes in speech, gait, paresthesias, weakness, no reported neuro focal deficits. ASSESSMENT/PLAN: 64-year-old male with a PMH significant for HTN, HLD, orthostatic hypotension, s /p cardiac cath 2013 (reportedly clean coronaries), diverticulitis, BPH, bipolar disorder, and remote substance abuse. Admitted for several near syncopal episodes. Near syncope Assessment --three episodes over past 5 days --troponins negative x 3 --ECG: no signs of acute ischemic event --Echo and stress done 6 weeks ago, apparently unremarkable --CTAP: no acute pathology --no fever, no leukocytosis, UA negative, CXR clear Plan --continuous telemetry monitoring --cardiology consulted - Dr. Wilde --US carotids- Mild intimal thickening and minimal plaque at the left common carotid bifurcation/bulb as well as minimal intimal thickening at the right common carotid bifuracation without evidence of hypodermically significant stenosis, bilaterally --thyroid studies-WNL --rapid flu-negative Orthostatic hypotension --diagnosed about 30 years ago after a positive tilt table test, has not been on medication --not orthostatic this morning Hypertension --continue ToprolXL Hyperlipidemia --continue atorvastatin Diverticulitis --no issues BPH --continue tamsulosin Bipolar disorder --continue depakote, risperdal --no recent medication changes FEN Fluids: PO intake adequate Electrolytes: replete as indicated Nutrition: regular diet DVT prophylaxis: subq heparin Dispo: continues to require inpatient care. Full code. Minutes to complete discharge: 35 Discharge Summary Problems reviewed: Yes Reason For Visit: NAUSEA, LIGHTHEADED Current Active Problems Elevated lipase (Acute) Pre-syncope (Acute) Condition: Stable - Instructions Diet, Activity, Other Instructions: You were admitted and treated for near syncopal episodes. You were seen by the Synthetic Gem Press Operator Dr. Wilde. You are to follow up with Dr. Lau's office next week about a Holter Monitor No new medication. Resume your normal medication regime. Maintain a low fat, low cholesterol diet. Referrals: Richard West MD [Primary Care Provider] - Osvaldo Lau MD [Staff Physician] - - Home Medications Comprehensive Discharge Medication List: Ambulatory Orders Divalproex *ER* [Depakote *ER* -] 1,500 mg PO DAILY 05/08/13 Venlafaxine-Xr [Effexor Xr] 150 mg PO DAILY 05/08/13 Aspirin Coated [Ecotrin -] 81 mg PO DAILY 03/05/16 Risperidone [Risperdal] 1 mg PO BID 03/05/16 Cholecalciferol (Vitamin D3) [Vitamin D3] 2,000 unit PO DAILY capsule 09/24/16 Atorvastatin Ca [Lipitor] 20 mg PO HS 06/12/18 This patient is new to me today: Yes Date on this admission: 08/29/19 Emergency Visit: Yes ED Registration Date: 08/27/19 Care time: The patient presented to the Emergency Department on the above date and was hospitalized for further evaluation of their emergent condition. Critical Care patient: No - Discharge Referral Referred to [facility] Med [facility] No
[2019-08-29 09:11] VITALS: BP 110/59; PULSE 63; TEMP 97.6
[2019-08-29] MEDS: VENLAFAXINE HCL 75 MG E.R. CAPSULES (FP) PO SCH (09:12)
[2019-08-29] MEDS: risperiDONE 1 MG TABLET (FP) PO SCH (09:12)
[2019-08-29] MEDS: DIVALPROEX NA *ER* EXTEND REL 500 MG TABLET.SA (FP) PO SCH (09:12)
[2019-08-29] MEDS: VALSARTAN 80 MG TABLET (UD) PO SCH (09:12)
[2019-08-29] MEDS: ASPIRIN COATED 81 MG TABLET.EC PO SCH (09:12)
[2019-08-29] MEDS: FENOFIBRIC ACID 135 MG CAP PO SCH (09:12)
== END 2019-08-29 09:50 | disposition home or self-care (01) | DRG 312 ==
LOC: FER 18:45 → FM/S 22:25 → OBSVTOIN 22:58
PROVIDERS: ADMIT Internal Medicine; ATTEND Nurse Practitioner Acute Care
DX: R55 Syncope and collapse (principal); I10 Essential (primary) hypertension; F31.9 Bipolar disorder, unspecified; E78.5 Hyperlipidemia, unspecified; E16.2 Hypoglycemia, unspecified; N40.0 Benign prostatic hyperplasia without lower urinary tract symptoms
CPT/HCPCS: 36415; 71045-TC-FY; 74177-TC; 80048; 80053; 81003; 81015; 82550; 82962; 83036; 83605; 83690; 83735; 84439; 84443; 84481; 84484; 85025; 87804; 93005; 93880-TC; 99284-25; G0378; J1644; J2794; J7030

== ENCOUNTER 2020-03-07 06:01 | Day surgery (SDC) | payer BC ==
[2020-03-01 12:56] VITALS: BMI 35.5
[2020-03-07] MEDS ORDERED: LIDOCAINE HCL/PF 2% SDV 5ML VIAL ONE ×2 (07:15→08:05)
[2020-03-07] MEDS ORDERED: BUPIVACAINE HCL/PF 0.5% (5MG/ML) 10 ML VIAL ONE (07:16)
[2020-03-07] MEDS ORDERED: SUCCINYLCHOLINE CHLORIDE 200 MG/10 ML SYRINGE ONE (07:16)
[2020-03-07] MEDS ORDERED: PROPOFOL 20 ML ONE ×4 (07:16)
[2020-03-07] MEDS ORDERED: MIDAZOLAM HCL 2 MG/2 ML SINGLE DOSE VIAL ONE (07:17)
[2020-03-07] MEDS ORDERED: ceFAZolin SODIUM 1 GM VIAL ONE (08:05)
[2020-03-07] MEDS ORDERED: KETOROLAC TROMETHAMINE 30 MG/1 ML VIAL ONE (08:05)
[2020-03-07] MEDS ORDERED: ONDANSETRON 4 MG/2 ML VIAL ONE (08:05)
[2020-03-07] MEDS ORDERED: DEXAMETHASONE SOD PHOSPHATE 4 MG/1 ML VIAL ONE (08:05)
[2020-03-07] MEDS ORDERED: ACETAMINOPHEN WITH CODEINE 300MG/30MG TABLET PO PRN (09:53)
[2020-03-07 10:08] VITALS: TEMP 98.8
[2020-03-07 10:11] VITALS: BP 140/78; PULSE 66
--- NOTE | 2020-03-07 14:41 | OP ---
DATE OF OPERATION: 03/07/2020 PREOPERATIVE DIAGNOSIS: Hallux rigidus, left foot. POSTOPERATIVE DIAGNOSIS: Hallux rigidus, left foot. OPERATIVE PROCEDURE: Cheilectomy, left foot. SURGEON: Chintan Peña DPM DATA PROCESSOR: Trever Hinson DPM OPERATION IN DETAIL: The patient was taken to the operating room, placed on the operating table in the supine position. The usual aseptic prepping and draping were performed. After an ankle tourniquet was applied and the extremity was elevated for a full 3 minutes, it was inflated to 250 mmHg. The extremity was then lowered to the operating table. Sterile draping and prepping were completed. Attention was directed to an old incision on the dorsum of the left foot where a new incision was made approximately 6 cm. Incision was deepened down to the capsule. It was noted that very little capsule was left because this is a procedure that was done previously by another doctor. All vital structures were identified, retracted and coagulated. Major exostoses were noted on the dorsum and the dorsal medial aspect of the right 1st metatarsophalangeal joint. Using an osteotome, mallet and a rongeur, these were excised. The area was flushed and the rasped in total. Deep structures and capsule were closed with No. 2-0 Vicryl. Subcutaneous tissue was closed with No. 4-0 Vicryl and the skin with No. 4-0 nylon. Please note that there was much scar tissue and very little capsule noted. A dry sterile dressing was applied to the operative foot. Please note that local anesthesia was initiated prior to the case with a total of 15 mL of a mixture of 0.5% Marcaine and 2% plain lidocaine. The capillary filling time was noted to be intact once the tourniquet was released. CHINTAN PEÑA DPM [id number]
--- NOTE | 2020-03-09 11:59 | PATH ---
Surgical Pathology Report Patient Name: KAMILLA RUTH [facility]. Rec. #: [id number] /Age/Gender: 1955 (Age: 64) / M Account: [id number] Location: [facility] AMBULATORY Taken: 03/07/2020 Received: 03/07/2020 Reported: 03/09/2020 Physicians: Akiko Carmona Specimen(s) Received LEFT GREAT TOE BONE Clinical History Hallux rigidus left foot Final Diagnosis BONE, GREAT TOE, LEFT, CHEILECTOMY: BONE WITH REACTIVE CHANGES AND REMODELING. Electronically Signed Ashlee Nolan M.D. Gross Description Received in formalin labeled "left great toe bone," are 2 duckworth-yellow portions of bone measuring 0.8 x 0.3 x 0.2 cm and 1.4 x 0.8 x 0.4 cm. Senior Data Mining Analyst sections are submitted in one cassette, following decalcification. /03/08/2020 saudi03/08/2020
== END 2020-03-07 09:45 | disposition home or self-care (01) ==
LOC: CANPRESDC → FASU 06:01
PROVIDERS: ATTEND Podiatrist
PROC: 0QBP0ZZ Excision of Left Metatarsal, Open Approach (ICD-10-PCS; principal; 2020-03-07 07:50)
DX: M20.22 Hallux rigidus, left foot (principal)
CPT/HCPCS: 73630-TC-LT; 88304-TC; 88311-TC

== ENCOUNTER 2020-05-18 15:56 | Emergency (ER) | payer BC ==
--- NOTE | 2020-05-18 16:06 | TELE ---
HPI Do you have fever,cough or shortness of breath?: No - General Reason For Visit: VIRTUAL VISIT History Source: Patient Exam Limitations: No Limitations Past History - Travel History Traveled outside of the country in the last 30 days: No Close contact w/someone who was outside of country & ill: No - Medical History Allergies/Adverse Reactions: Allergies Allergy/AdvReac Type Severity Reaction Status Date / Time No Known Allergies Allergy Verified 03/01/20 12:43 Home Medications: Ambulatory Orders Divalproex *ER* [Depakote *ER* -] 1,500 mg PO DAILY 05/08/13 Venlafaxine-Xr [Effexor Xr] 150 mg PO DAILY 05/08/13 Aspirin Coated [Ecotrin -] 81 mg PO DAILY 03/05/16 Risperidone [Risperdal] 1 mg PO BID 03/05/16 Cholecalciferol (Vitamin D3) [Vitamin D3] 2,000 unit PO HS capsule 09/24/16 Atorvastatin Ca [Lipitor] 20 mg PO HS 06/12/18 Anemia: No Asthma: No Cancer: Yes (Prostate Dx 02/2016) Cardiac Disorders: Yes (Angina) CVA: No COPD: No CHF: No Dementia: No Diabetes: No GI Disorders: Yes (Diverticulitis) Disorders: Yes (BPH OVERACTIVE BLADDER,PROSTATE CA) HTN: Yes (DX 2010) Hypercholesterolemia: Yes (DX 1995) Liver Disease: No Psychiatric Problems: Yes (BIPOLAR) Seizures: No Thyroid Disease: No - Surgical History Abdominal Surgery: No Appendectomy: No Cardiac Surgery: (Cardiac Cath 2012) Cholecystectomy: No Lung Surgery: No Neurologic Surgery: No Orthopedic Surgery: Yes (Left Foot Surgery,RIGHT TOE SURGERY) - Psycho-Social/Smoking History Smoking History: Never smoked Have you smoked in the past 12 months: No If you are a former smoker, when did you quit?: QUIT 50 YRS AGO-SMOKED 1 YR ONLY Review of Systems - Review of Systems Able to Perform ROS?: Yes Comments:: 05/18/20 16:05 CONSTITUTIONAL: Absent: fever, chills, diaphoresis, generalized weakness, malaise, loss of appetite HEENT: Absent: rhinorrhea, nasal congestion, throat pain, throat swelling, difficulty swallowing, mouth swelling, ear pain, eye pain, visual Changes CARDIOVASCULAR: Absent: chest pain, loss of consciousness, palpitations, irregular heart rate, peripheral edema RESPIRATORY: Absent: cough, shortness of breath, dyspnea with exertion, orthopnea, wheezing, stridor, hemoptysis GASTROINTESTINAL: Present: nausea/vomiting Absent: abdominal pain, abdominal distension, diarrhea, constipation, melena, hematochezia SKIN: Absent: rash, itching, pallor NEUROLOGIC: Absent: headache, focal weakness or paresthesias, dizziness, unsteady gait, seizure, mental status changes, bladder or bowel incontinence PSYCHIATRIC: Absent: anxiety, depression, suicidal or homicidal ideation, hallucinations. Limited Belarusian proficient: No *Physical Exam - Physical Exam 05/18/20 16:05 GENERAL: Well developed, well nourished. Awake and alert. No acute distress. HEENT: Normocephalic, atraumatic. PERRLA, EOMI. NECK: Supple. Full ROM. PULMONARY: No evidence of respiratory distress. EXTREMITIES: No cyanosis. SKIN: Warm and dry. Normal capillary refill. No rashes. No jaundice. NEUROLOGICAL: Alert, awake, appropriate. PSYCHIATRIC: Cooperative. Good eye contact. Appropriate mood and affect. - Medical Decision Making 05/18/20 16:15 The patient is a 65-year-old male past medical history of bipolar disorder, hypertension, hyperlipidemia, presents to the ER today requesting COVID testing. He states he is been having nausea and vomiting for the past month. He is following with Dr. Díaz for this issue. He states that Dr. Díaz did a COVID test and it came back positive for antibodies. He was requested by Dr. Díaz to come to the ER today for a COVID swab to make sure he does not have an acute infection. He states he has not vomited since Saturday and overall feels well. Denies cough, fever and shortness of breath. A/P: Need for COVID testing Patient appears well on telehealth, no shortness of breath or signs of distress. We will order COVID swab. Patient is currently in the [facility] emergency department. Isolation precautions given. Discharge Diagnosis at time of Disposition: Counseled about COVID-19 virus infection - Referrals Follow-up Referral(s): Richard West MD [Primary Care Provider] - - Patient Instructions
--- OUTSIDE RECORDS SUMMARY | 2020-05-18 20:15 | XMS ---
:1955 Author Organization [facility] Care Team Providers Name Role Phone Sophy Unavailable Unavailable Sophy Unavailable Unavailable Sophy Unavailable Unavailable Sophy Unavailable Unavailable Sophy Unavailable Unavailable Sophy Unavailable Unavailable Sophy Unavailable Unavailable Sophy Unavailable Unavailable Sophy Unavailable Unavailable Re-disclosure Warning The records that you are about to access may contain information from federally- assisted alcohol or drug abuse programs. If such information is present, then the following federally mandated warning applies: This information has been disclosed to you from records protected by federal confidentiality rules (42 CFR part 2). The federal rules prohibit you from making any further disclosure of this information unless further disclosure is expressly permitted by the written consent of the person to whom it pertains or as otherwise permitted by 42 CFR part 2. A general authorization for the release of medical or other information is NOT sufficient for this purpose. The Federal rules restrict any use of the information to criminally investigate or prosecute any alcohol or drug abuse patient.The records that you are about to access may contain highly sensitive health information, the redisclosure of which is protected by Article 27-F of the [facility] Public Health law. If you continue you may haveaccess to information: Regarding HIV / AIDS; Provided by facilities licensed or operated by the [facility] Office of Mental Health; or Provided by the [facility] Office for People With Developmental Disabilities. If such information is present, then the following [facility] mandated warning applies: This information has been disclosed to you from confidential records which are protected by state law. State law prohibits you from making any further disclosure of this information without the specific written consent of the person to whom it pertains, or as otherwise permitted by law. Any unauthorized further disclosure in violation of state law may result in a fine or usp sentence or both. A general authorization for the release of medical or other information is NOT sufficient authorization for further disclosure. Encounters Encounter Providers Location Date Indications Data Source(s ) Attender: Richard 02/24/2020 [facility] ( [facility] 12:00:00 AM EDT [facility], [facility]) Office Immunizations Vaccine Date Status Description Data Source(s) pneumococcal 07/23/2018 completed [facility] ([facility] polysaccharide PPV23 12:00:00 AM EST Medi inge, PC) Medications Medication Brand Start Product Dose Route Administrative Pharmacy [facility] Indications Reaction Description Data Name Date Form Instructions Instructions Source(s) ropinirole ROPINI 02/23/ TABLET 30 complet ROPIN IROLE [facility] (St 1 MG Oral ROLE:3 2019 ed [facility] Tablet 35491 12:00: Medical, ROPINIROLE: 00 AM PC) [id number] EDT 24 HR VENLAF 02/23/ complet VENLAFAXINE [facility] (St venlafaxine AXINE 2019 ed HYDROCHLORID [facility] 150 MG HYDROC 12:00: E ER Medical, Extended HLORID 00 AM PC) Release E EDT Oral Tablet ER:808 VENLAFAXINE 744 HYDROCHLORI DE ER:[id number] Divalproex DIVALP 02/23/ DELAYED 30 complet DIVA LPROEX [facility] (St Sodium 500 ROEX 2020 RELEASE ed SODIUM [facility] MG Delayed SODIUM 12:00: TABLET Med ical, Release :[id number] 00 AM PC) Oral Tablet 70 EDT DIVALPROEX SODIUM:1099 870 Aspirin 81 ASPIR- 02/23/ complet ASPIR-L OW [facility] (St MG Delayed LOW:12 2019 ed [facility] Release 78041 12:00: Medical, Oral Tablet 00 AM PC) [Aspir-Low] EDT ASPIR-LOW:1 153410 valsartan DIOVAN 02/02/ TABLET 90 complet DIOVAN [facility] (St 80 MG Oral :66309 2019 ed [facility] Tablet 1 12:00: Medical, [Diovan] 00 AM PC) DIOVAN:3517 EDT 61 24 HR METOPR 06/10/ TABLET, 90 complet METOPROLO L [facility] (St metoprolol OLOL 2020 EXTENDED ed SUCCINATE ER [facility] succinate SUCCIN 12:00: RELEASE Med ical, 50 MG ATE 00 AM PC) Extended ER:866 EDT Release 436 Oral Tablet METOPROLOL SUCCINATE ER:[id number] FLUTICASONE 01/18/ SPRAY 16 complet FLUTICA SONE [facility] (St NASAL:54767 2019 ed NASAL [facility] 07 12:00: Medical, 00 AM PC) EDT Fenofibrate TRICOR 11/10/ TABLET 90 complet TRIC OR [facility] (St 145 MG Oral :61156 2019 ed [facility] Tablet 1 12:00: Medical, [Tricor] 00 AM PC) TRICOR:5402 EDT 81 atorvastati ATORVA 11/10/ TABLET 90 complet ATOR VASTATIN [facility] (St n 20 MG STATIN 2019 ed [facility] Oral Tablet :95790 12:00: Medi inge, ATORVASTATI 0 00 AM PC) N:[id number] EDT Insurance Providers Payer name Policy type Policy ID Covered Covered green party's Policy P ella / Coverage green party ID relationship to [facility] ormation type ortiz BC EPO [id number] SP [id number] MEDICARE [id number] SP [id number] EMPIRE BCBS [id number] (PPO) CIGNA (HMO) [id number] 1 [id number] EMPIRE BCBS [id number] (PPO) 30 0 BC EPO [id number] SP [id number] BC EPO [id number] SP [id number] EMPIRE BC/BS [id number] BC OUT OF [id number] SP [id number] STATE [id number] 0 Problems, Conditions, and Diagnoses Code Display Name Description Problem Type Effective Data Dates Source(s) M19.072 Primary PRIMARY Problem 11/11/2019 [facility] (St osteoarthritis, OSTEOARTHRITIS, 12:00:00 AM [facility] left ankle and foot LEFT ANKLE AND FOOT EDT Medical, ) Z01.818 Encounter for other ENCOUNTER FOR OTHER Problem 020 [facility] (St preprocedural PREPROCEDURAL 12:00:00 AM [facility] examination EXAMINATION EDT Medical, ) J20.8 Acute bronchitis ACUTE BRONCHITIS Problem 05/13/2019 ME [facility] (St due to other DUE TO OTHER 12:00:00 AM [facility] specified organisms SPECIFIED ORGANISMS EDT Medical, ) R00.2 Palpitations PALPITATIONS Problem 05/13/2019 [facility] (St 12:00:00 AM [facility] EDT Medical, ) J06.9 Acute upper ACUTE UPPER Problem 08/27/2018 [facility] (St respiratory RESPIRATORY 12:00:00 AM [facility] infection, INFECTION, [facility] Medical, ) unspecified UNSPECIFIED Z00.00 Encounter for ENCOUNTER FOR Problem 07/21/2018 [facility] ( St general adult GENERAL ADULT 12:00:00 AM [facility] medical examination MEDICAL EXAMINATION [facility] Medical, ) without abnormal WITHOUT ABNORMAL findings FINDINGS E66.09 Other obesity due OTHER OBESITY DUE Problem 03/26/2018 [facility] (St to excess calories TO EXCESS CALORIES 12:00:00 AM [facility] Medical, ) K57.32 Diverticulitis of DIVERTICULITIS OF Problem 01/01/2018 [facility] (St large intestine LARGE INTESTINE 12:00:00 AM [facility] without perforation WITHOUT PERFORATION EDT Medical, PC) or abscess without OR ABSCESS WITHOUT bleeding BLEEDING G47.33 Obstructive sleep OBSTRUCTIVE SLEEP Problem 01/01/2018 [facility] (St apnea (adult) APNEA (ADULT) 12:00:00 AM [facility] (pediatric) (PEDIATRIC) EDT Medical, ) Surgeries/Procedures Procedure Description Date Indications Data Source(s) Documentation of current 02/24/2020 [facility] ([facility] medications (procedure) 12:00:00 AM EDT [facility], ) OFFICE OUTPATIENT VISIT 02/24/2020 [facility] EN ([facility] 15 MINUTES 12:00:00 AM EDT Medical, ) Documentation of current 11/11/2019 [facility] ([facility] medications (procedure) 12:00:00 AM EDT [facility], ) Documentation of current 11/11/2019 [facility] ([facility] medications (procedure) 12:00:00 AM EDT [facility], ) Documentation of current 11/11/2019 [facility] ([facility] medications (procedure) 12:00:00 AM EDT [facility]) Documentation of current 11/11/2019 [facility] Documentation of current 11/11/2019 [facility] ([facility] medications (procedure) 12:00:00 AM EDT [facility]) Documentation of current 11/11/2019 [facility] ([facility] medications (procedure) 12:00:00 AM [facility], ) OFFICE OUTPATIENT VISIT 11/11/2019 [facility] ([facility] 15 MINUTES 12:00:00 AM [facility], ) ECG ROUTINE ECG W/LEAST 11/11/2019 MED[facility] EN ([facility] 12 LDS W/I&R 12:00:00 AM [facility], ) Documentation of current 07/22/2019 [facility] ([facility] medications (procedure) 12:00:00 AM [facility]) Documentation of current 07/22/2019 [facility] ([facility] medications (procedure) 12:00:00 AM EST [facility]) Documentation of current 07/22/2019 [facility] ([facility] medications (procedure) 12:00:00 AM EST [facility]) Documentation of current 07/22/2019 [facility] ([facility] medications (procedure) 12:00:00 AM EST [facility], [facility]) Documentation of current 07/22/2019 [facility] ([facility] medications (procedure) 12:00:00 AM [facility]) Documentation of current 07/22/2019 [facility] ([facility] medications (procedure) 12:00:00 AM EST [facility], [facility]) Documentation of current 07/22/2019 [facility] ([facility] medications (procedure) 12:00:00 AM EST [facility]) Documentation of current 07/22/2019 [facility] ([facility] medications (procedure) 12:00:00 AM EST [facility]) ECG ROUTINE ECG W/LEAST 07/22/2019 [facility] ([facility] 12 LDS W/I&R 12:00:00 AM [facility], ) Documentation of current 05/13/2019 MED [facility] ([facility] medications (procedure) 12:00:00 AM EDT edical, ) Documentation of current 05/13/2019 [facility]) [facility] current 05/13/2019 [facility] ([facility] (procedure) [facility]ation of current 05/13/2019 [facility] ([facility] (procedure) 12:00:[facility] Documentation of current 05/13/2019 [facility] ([facility] medications (procedure) 12:00:[facility] Documentation of current 05/13/2019 [facility] ([facility] (procedure) 12:00:00 [facility] Documentation of current 05/13/2019 [facility] ([facility] medications (procedure) 12:00:00 AM EDT [facility], ) Documentation of current 05/13/2019 MED [facility] ([facility] medications (procedure) 12:00:00 AM EDT [facility], ) Documentation of current 05/13/2019 [facility] ([facility] medications (procedure) 12:00:00 AM EDT [facility], ) OFFICE OUTPATIENT VISIT 05/13/2019 [facility] ([facility] 25 MINUTES 12:00:00 AM [facility], ) ECG ROUTINE ECG W/LEAST 05/13/2019 MED[facility] EN ([facility] 12 LDS W/I&R 12:00:00 AM [facility], ) Documentation of current 08/27/2018 [facility] ([facility] medications (procedure) 12:00:00 AM EST [facility], ) Documentation of current 08/27/2018 [facility] ([facility] medications (procedure) 12:00:00 AM EST [facility], ) OFFICE OUTPATIENT VISIT 08/27/2018 [facility] ([facility] 15 MINUTES 12:00:00 AM [facility], ) Documentation of current 07/21/2018 [facility] ([facility] medications (procedure) 12:00:00 AM [facility] current 07/21/2018 [facility] ([facility] medications (procedure) 12:00:00 AM EST [facility]) Documentation of current 07/21/2018 [facility] ([facility] medications (procedure) 12:00:00 AM EST [facility], [facility]) Documentation of current 07/21/2018 [facility] ([facility] medications (procedure) 12:00:00 AM EST [facility], [facility]) Documentation of current 07/21/2018 [facility] ([facility] (procedure) [facility]00:00 [facility] Documentation of current 07/21/2018 [facility] ([facility] medications (procedure) 12:00:00 AM EST [facility]) Documentation of current 07/21/2018 [facility] ([facility] medications (procedure) 12:00:00 AM EST [facility], ) ECG ROUTINE ECG W/LEAST 07/21/2018 [facility] ([facility] 12 LDS W/I&R 12:00:00 AM [facility], ) Documentation of current 04/02/2018 [facility] ([facility] medications (procedure) 12:00:00 AM EDT [facility], ) Documentation of current 04/02/2018 [facility] ([facility] medications (procedure) 12:00:00 AM EDT [facility], ) OFFICE OUTPATIENT VISIT 04/02/2018 [facility] ([facility] 15 MINUTES 12:00:00 AM [facility], ) Documentation of current 03/26/2018 MED [facility] ([facility] medications (procedure) 12:00:00 AM EDT [facility]) Documentation of current 03/26/2018 [facility] ([facility] medications (procedure) 12:00:00 AM EDT [facility]) Documentation of current 03/26/2018 [facility] ([facility] medications (procedure) 12:00:00 AM EDT [facility], [facility]) Documentation of current 03/26/2018 [facility] ([facility] medications (procedure) 12:00:00 AM EDT [facility], [facility]) Documentation of current 03/26/2018 [facility] ([facility] medications (procedure) 12:00:00 AM EDT [facility], [facility]) OFFICE OUTPATIENT VISIT 03/26/2018 MED[facility] ([facility] 15 MINUTES 12:00:00 AM [facility], ) Documentation of current 01/01/2018 MED [facility] ([facility] medications (procedure) 12:00:00 AM EDT [facility], ) Documentation of current 01/01/2018 MED [facility] ([facility] medications (procedure) 12:00:00 AM EDT [facility]) Documentation of current 01/01/2018 MED [facility] ([facility] medications (procedure) 12:00:00 AM EDT [facility]) Documentation of current 01/01/2018 MED [facility] ([facility] medications (procedure) 12:00:00 AM EDT [facility]) OFFICE OUTPATIENT VISIT 01/01/2018 MED[facility] EN ([facility] 25 MINUTES 12:00:00 AM [facility] Medical, ) Documentation of current 12/25/2017 MED [facility] ([facility] medications (procedure) 12:00:00 AM EDT [facility], ) Documentation of current 12/25/2017 MED [facility] ([facility] medications (procedure) 12:00:00 AM EDT [facility]) Documentation of current 12/25/2017 MED [facility] ([facility] medications (procedure) 12:00:00 AM EDT [facility], ) Documentation of current 12/25/2017 [facility] ([facility] medications (procedure) 12:00:00 AM EDT [facility]) Documentation of current 12/25/2017 MED [facility] ([facility] medications (procedure) 12:00:00 AM EDT [facility], ) OFFICE OUTPATIENT VISIT 12/25/2017 MED[facility] ([facility] 25 MINUTES 12:00:00 AM [facility], ) Results ID Date Data Source [id number] 03/04/2020 12:30:00 PM EDT [facility] Name Value Range Interpretation Description Data Sup porting Code Source(s) Document(s ) SARS [facility] coronavirus 2 RNA This lab was ordered by FELICIA MINER and reported by [facility]. Procedure Social History Code Duration Value Status Description Data Source(s ) Smoking 02/24/2020 Tobacco Status: completed Tobacco Status: MED[facility] EN (St 12:00:00 AM EDT Former smoker Former smoker [facility], Tobacco details: Tobacco details: ) Cigarettes Cigarettes Smoking Smoking History: History: 1-5 1-5 Years Daily Years Daily Smoking: < Smoking: < 1 Pack 1 Pack Smoking Smoking Stop Stop Date: Date: Stopped at Stopped at age 24 age 24 Marital Marital Status Status Household Household Members Members 2 Number 2 Number o... of Children 2 Occupation abuse counsellor Diet and Exercise Well Balanced Diet About half of the time In The Past Year... Other Exercise Frequency Never Alcohol Use Alcohol Use Former Alcoholic Alcohol Counseling Other (attends ) Mental Health History Mental History Other (Bipolar disorder) Smoking 02/24/2020 Unknown if ever completed Unknown if ever MED[facility] EN (St 12:00:00 AM EDT smoked smoked [facility], ) Vital Signs ID Date Data Source UNK Name Value Range Interpretation Code Description Data Source(s) Heart rate 68 /min 68 /min [facility] ([facility] , ) Respiratory rate 18 /min 18 /min [facility] ( [facility]) Body temperature 97.8 F 97.8 F [facility] ( [facility]) Body mass index 37.9 kg/m2 37.9 kg/m2 [facility] (S t (BMI) [Ratio] [facility]) Diastolic blood 72 mm[Hg] 72 mm[Hg] [facility] (S t pressure [facility]) Systolic blood 118 mm[Hg] 118 mm[Hg] [facility] ([facility]) Body weight 264 lb 264 lb [facility] ([facility]) Body height 70 in 70 in [facility] ([facility]) Heart rate 64 /min 64 /min [facility] ([facility]) Respiratory rate 17 /min 17 /min [facility] ( [facility]) Body temperature 98.1 F 98.1 F [facility] ( [facility]) Body mass index 36.7 kg/m2 36.7 kg/m2 [facility] (S t (BMI) [Ratio] [facility], ) Diastolic blood 66 mm[Hg] 66 mm[Hg] [facility] (S t pressure [facility]) Systolic blood 110 mm[Hg] 110 mm[Hg] [facility] ([facility]) Body weight 256 lb 256 lb [facility] ([facility]) Body height 70 in 70 in [facility] ([facility]) Heart rate 66 /min 66 /min [facility] ([facility]) Respiratory rate 18 /min 18 /min [facility] ( [facility]) Body mass index 37.9 kg/m2 37.9 kg/m2 [facility] (S t (BMI) [Ratio] [facility]) Diastolic blood 82 mm[Hg] 82 mm[Hg] [facility] (S t pressure [facility]) Systolic blood 146 mm[Hg] 146 mm[Hg] [facility] ([facility]) Body weight 264 lb 264 lb [facility] ([facility]) Body height 70 in 70 in [facility] ([facility]) Heart rate 91 /min 91 /min [facility] ([facility]) Respiratory rate 18 /min 18 /min [facility] ( [facility]) Body temperature 98.4 F 98.4 F [facility] ( [facility]) Inhaled oxygen 99 % 99 % [facility] ([facility]) Body mass index 37.4 kg/m2 37.4 kg/m2 [facility] (S t (BMI) [Ratio] [facility], ) Diastolic blood 78 mm[Hg] 78 mm[Hg] MED[facility] (S t pressure [facility]) Systolic blood 142 mm[Hg] 142 mm[Hg] [facility] ([facility]) Body weight 268 lb 268 lb [facility] ([facility]) Body height 71 in 71 in [facility] ([facility]) Heart rate 78 /min 78 /min [facility] ([facility]) Respiratory rate 14 /min 14 /min [facility] ( [facility]) Body temperature 98.5 F 98.5 F [facility] ( [facility]) Diastolic blood 82 mm[Hg] 82 mm[Hg] MED[facility] (S t pressure [facility]) Systolic blood 146 mm[Hg] 146 mm[Hg] [facility] ([facility]) Heart rate 72 /min 72 /min [facility] ([facility]) Respiratory rate 14 /min 14 /min [facility] ( [facility]) Body mass index 33.6 kg/m2 33.6 kg/m2 MED[facility] (S t (BMI) [Ratio] [facility]) Diastolic blood 70 mm[Hg] 70 mm[Hg] [facility] (S t pressure [facility]) Systolic blood 110 mm[Hg] 110 mm[Hg] [facility] ([facility]) Body weight 241 lb 241 lb [facility] ([facility]) Body height 71 in 71 in [facility] ([facility]) Heart rate 76 /min 76 /min [facility] ([facility]) Respiratory rate 15 /min 15 /min [facility] ( [facility]) Body temperature 98.3 F 98.3 F [facility] ( [facility]) Body mass index 36.7 kg/m2 36.7 kg/m2 MED[facility] (S t (BMI) [Ratio] [facility]) Diastolic blood 58 mm[Hg] 58 mm[Hg] MED[facility] (S t [facility]) Systolic blood 105 mm[Hg] 105 mm[Hg] MED[facility] ([facility]) Body weight 263 lb 263 lb [facility] ([facility]) Body height 71 in 71 in [facility] ([facility]) Heart rate 95 /min 95 /min [facility] ([facility]) Respiratory rate 16 /min 16 /min [facility] ( [facility]) Body temperature 99.3 F 99.3 F [facility] ( [facility]) Inhaled oxygen 96 % 96 % MED[facility] ([facility]) Diastolic blood 92 mm[Hg] 92 mm[Hg] MED[facility] (S t pressure [facility]) Systolic blood 160 mm[Hg] 160 mm[Hg] [facility] ([facility]) Body weight 268 lb 268 lb [facility] ([facility]) Heart rate 80 /min 80 /min [facility] ([facility]) Respiratory rate 14 /min 14 /min [facility] ( [facility]) Body temperature 98.4 F 98.4 F [facility] ( [facility]) Diastolic blood 72 mm[Hg] 72 mm[Hg] [facility] ([facility]) Systolic blood 108 mm[Hg] 108 mm[Hg] [facility] ([facility]) Heart rate 84 /min 84 /min [facility] ([facility]) Respiratory rate 16 /min 16 /min [facility] ( [facility]) Body temperature 98.5 F 98.5 F [facility] ( [facility]) Diastolic blood 80 mm[Hg] 80 mm[Hg] [facility] ([facility]) Systolic blood 132 mm[Hg] 132 mm[Hg] [facility] ([facility])
== END 2020-05-18 16:19 | disposition home or self-care (01) ==
LOC: JVIRT 15:56
DX: Z11.59 Encounter for screening for other viral diseases (principal)
CPT/HCPCS: Q3014-GT; U0003

== ENCOUNTER 2021-05-04 17:46 | Emergency (ER) | payer BC, OTHER ==
[2021-05-04 18:03] VITALS: BP 158/76; PULSE 73; TEMP 98.6; BMI 35.9
[2021-05-04] MEDS ORDERED: CEPHALEXIN MONOHYDRATE 500 MG CAPSULE (UD) PO ONE (18:28)
[2021-05-04] MEDS ORDERED: SULFAMETHOXAZOLE/TRIMETHOPRIM 800MG/160MG D.S. TABLET PO ONE (18:28)
[2021-05-04] MEDS ORDERED: CEPHALEXIN MONOHYDRATE 500 MG CAPSULE (UD) ONE (18:38)
[2021-05-04] MEDS ORDERED: SULFAMETHOXAZOLE/TRIMETHOPRIM 800MG/160MG D.S. TABLET ONE (18:38)
[2021-05-04 19:22] LABS: BASO % 1.3 % (0-2.0); CALCIUM 8.9 mg/dl (8.5-10); EOS % 3.4 % (0-4.5); HEMATOCRIT 36.8 % (35.4-49); HEMOGLOBIN 12.5 GM/dl (11.7-16.9); LYMPH % 16.6 % (8-40); MCH 31.1 pg (25.7-33.7); MEAN CELL VOLUME 91.6 fl (80-96); MEAN PLT VOLUME 8.9 fl (7.5-11.1); MONO % 10.3 % (3.8-10.2); NEUT % 68.4 % (42.8-82.8); PLATELET COUNT 227 10^3/uL (134-434); RBC 4.02 M/mm3 (4.00-5.60); RDW 12.7 % (11.9-15.9); WHITE BLOOD COUNT 8.9 K/mm3 (4.0-10.8)
[2021-05-04 19:28] LABS: ALBUMIN 3.7 g/dl (3.4-5.0); BILIRUBIN,TOTAL 0.9 mg/dl (0.2-1); CREATININE 0.7 mg/dl (0.55-1.3); TOT PROT 6.3 g/dl (6.4-8.2)
== END 2021-05-04 19:42 | disposition home or self-care (01) ==
LOC: FER 17:46
DX: L30.4 Erythema intertrigo (principal); L03.314 Cellulitis of groin
CPT/HCPCS: 36415; 80053; 85025; 99283-25

== ENCOUNTER 2022-03-01 20:11 | Observation (INO) | payer BC, OTHER ==
[2022-03-01 21:49] LABS: INR 1.18 (0.83-1.09); PROTHROMBIN TIME (PATIENT) 13.6 SEC (9.7-13.0)
[2022-03-01 21:57] LABS: ALBUMIN 3.6 g/dl (3.4-5.0); BILIRUBIN,TOTAL 0.6 mg/dl (0.2-1); CALCIUM 9.7 mg/dl (8.5-10); CREATININE 0.8 mg/dl (0.55-1.3); TOT PROT 6.2 g/dl (6.4-8.2)
[2022-03-01 22:04] LABS: EPITHELIAL CELLS RARE /hpf
[2022-03-01 22:07] LABS: HEMATOCRIT 36.9 % (35.4-49); HEMOGLOBIN 13.1 G/dL (11.7-16.9); MCH 31.9 pg (25.7-33.7); MCHC 35.4 g/dl (32.0-35.9); MEAN CELL VOLUME 90.3 fl (80-96); MEAN PLT VOLUME 8.2 fl (7.5-11.1); PLATELET COUNT 234.9 10^3/uL (134-434); RBC 4.09 10^6/uL (4.00-5.60); RDW 13.9 % (11.9-15.9); WHITE BLOOD COUNT 11.6 10^3/uL (4.0-10.8)
[2022-03-02] MEDS ORDERED: SODIUM CHLORIDE 1,000 ML IV SCH (03:15)
[2022-03-02 04:27] VITALS: BMI 38.1
[2022-03-02] MEDS ORDERED: ACETAMINOPHEN 325 MG TABLET (FP) PO ONE (06:20)
[2022-03-02 08:13] LABS: ALBUMIN 3.7 g/dl (3.4-5.0); BILIRUBIN,TOTAL 0.5 mg/dl (0.2-1); CALCIUM 10.1 mg/dl (8.5-10); CREATININE 0.9 mg/dl (0.55-1.3); TOT PROT 6.5 g/dl (6.4-8.2)
[2022-03-02 08:29] LABS: HEMATOCRIT 38.1 % (35.4-49); HEMOGLOBIN 13.2 G/dL (11.7-16.9); MCH 31.4 pg (25.7-33.7); MCHC 34.8 g/dl (32.0-35.9); MEAN CELL VOLUME 90.2 fl (80-96); MEAN PLT VOLUME 8.6 fl (7.5-11.1); PLATELET COUNT 239.5 10^3/uL (134-434); RBC 4.22 10^6/uL (4.00-5.60); RDW 13.9 % (11.9-15.9); WHITE BLOOD COUNT 10.2 10^3/uL (4.0-10.8)
[2022-03-02] MEDS ORDERED: VENLAFAXINE HCL 150 MG E.R. CAPSULE PO SCH (10:00)
[2022-03-02] MEDS: VALSARTAN 80 MG TABLET PO SCH (10:20)
[2022-03-02] MEDS: FENOFIBRIC ACID 135 MG CAP PO SCH (10:20)
[2022-03-02] MEDS: ASPIRIN COATED 81 MG TABLET.EC PO SCH (10:20)
[2022-03-02] MEDS: ENOXAPARIN NA (PORCINE) 40 MG/0.4 ML DISP.SYRIN SQ SCH (10:20)
[2022-03-02] MEDS: risperiDONE 1 MG TABLET PO SCH ×2 (10:20→21:46)
[2022-03-02] MEDS: VENLAFAXINE HCL 75 MG E.R. CAPSULES PO SCH (11:43)
[2022-03-02] MEDS ORDERED: ATORVASTATIN CA 20 MG TABLET (FP) PO SCH (22:00)
[2022-03-03 08:29] LABS: MCH 31.9 pg (25.7-33.7); MCHC 35.1 g/dl (32.0-35.9); MEAN CELL VOLUME 90.8 fl (80-96); MEAN PLT VOLUME 8.4 fl (7.5-11.1); PLATELET COUNT 236.4 10^3/uL (134-434); RBC 4.07 10^6/uL (4.00-5.60); RDW 13.6 % (11.9-15.9); WHITE BLOOD COUNT 7.7 10^3/uL (4.0-10.8)
[2022-03-03 08:55] LABS: CALCIUM 9.8 mg/dl (8.5-10); CREATININE 0.7 mg/dl (0.55-1.3)
[2022-03-03 10:06] VITALS: BP 131/76; PULSE 72; TEMP 98.4
[2022-03-03] MEDS: FENOFIBRIC ACID 135 MG CAP PO SCH (10:21)
[2022-03-03] MEDS: ASPIRIN COATED 81 MG TABLET.EC PO SCH (10:22)
[2022-03-03] MEDS: VALSARTAN 80 MG TABLET PO SCH (10:22)
[2022-03-03] MEDS: VENLAFAXINE HCL 75 MG E.R. CAPSULES PO SCH (10:22)
[2022-03-03] MEDS: ENOXAPARIN NA (PORCINE) 40 MG/0.4 ML DISP.SYRIN SQ SCH (10:22)
[2022-03-03] MEDS: risperiDONE 1 MG TABLET PO SCH (10:22)
== END 2022-03-03 13:00 | disposition home or self-care (01) ==
LOC: FER 20:11 → FM/S 03-02 00:45
PROVIDERS: ADMIT Hospitalist; ATTEND Nurse Practitioner Family
PROC: 3E023GC Introduction of Other Therapeutic Substance into Muscle, Percutaneous Approach (ICD-10-PCS; principal; 2022-03-02)
PROC: 3E0337Z Introduction of Electrolytic and Water Balance Substance into Peripheral Vein, Percutaneous Approach (ICD-10-PCS; 2022-03-02)
DX: N40.0 Benign prostatic hyperplasia without lower urinary tract symptoms (principal); E78.5 Hyperlipidemia, unspecified; F02.80 Dementia in other diseases classified elsewhere, unspecified severity, without behavioral disturbance, psychotic disturbance, mood disturbance, and anxiety; I10 Essential (primary) hypertension; I95.1 Orthostatic hypotension; Z29.8 Encounter for other specified prophylactic measures; R50.9 Fever, unspecified; G30.9 Alzheimer's disease, unspecified; Z87.891 Personal history of nicotine dependence; R63.0 Anorexia; R53.1 Weakness; R61 Generalized hyperhidrosis; E66.8 Other obesity; Z68.38 Body mass index [BMI] 38.0-38.9, adult; E87.1 Hypo-osmolality and hyponatremia; Z71.89 Other specified counseling
CPT/HCPCS: 0241U-QW; 36415; 71275-TC; 80048; 80053; 81003; 81015; 82306; 82330; 82550; 82962; 83036; 83930; 83935; 83970; 84300; 84443; 84484; 85025; 85027; 85610; 93005; 96360; 96372; 99285-25; G0378; J2794; Q9967

== ENCOUNTER 2022-07-27 06:58 | Day surgery (SDC) | payer OTHER ==
[2022-07-24 10:08] VITALS: BMI 36.6
[2022-07-27] MEDS ORDERED: ONDANSETRON 4 MG/2 ML VIAL IVPUSH PRN (08:35)
[2022-07-27] MEDS ORDERED: LACTATED RINGERS SOLUTION 1,000 ML IV SCH (08:45)
[2022-07-27] MEDS ORDERED: PROPOFOL 20 ML ONE (08:46)
[2022-07-27] MEDS ORDERED: MIDAZOLAM HCL 2 MG/2 ML SINGLE DOSE VIAL ONE (08:46)
[2022-07-27] MEDS ORDERED: ONDANSETRON 4 MG/2 ML VIAL ONE (08:46)
[2022-07-27] MEDS ORDERED: ceFAZolin SODIUM 1 GM VIAL ONE (08:46)
[2022-07-27] MEDS ORDERED: DEXAMETHASONE SOD PHOSPHATE 4 MG/1 ML VIAL ONE (08:46)
[2022-07-27] MEDS ORDERED: LIDOCAINE HCL/PF 2% SDV 5ML VIAL ONE (08:46)
[2022-07-27] MEDS ORDERED: BUPIVACAINE HCL/PF 0.25% (2.5MG/ML) 10 ML VIAL ONE (08:55)
[2022-07-27] MEDS ORDERED: LIDOCAINE HCL 2% (20ML MULTI-DOSE VIAL) ONE (08:55)
[2022-07-27 10:24] VITALS: RESP 18
[2022-07-27 10:52] VITALS: TEMP 97.8
[2022-07-27 11:15] VITALS: BP 124/74; PULSE 70
== END 2022-07-27 11:36 | disposition home or self-care (01) ==
LOC: FASU 06:58
PROVIDERS: ATTEND Orthopaedic Surgery
PROC: 0RBP0ZZ Excision of Left Wrist Joint, Open Approach (ICD-10-PCS; principal; 2022-07-27 08:30)
DX: M67.432 Ganglion, left wrist (principal)
CPT/HCPCS: 88304-TC; 94760

== ENCOUNTER 2022-09-26 19:20 | Emergency (ER) | payer OTHER ==
[2022-09-26 19:29] VITALS: BP 156/87; PULSE 76; RESP 18; TEMP 99.2; BMI 35.8
[2022-09-26] MEDS ORDERED: ACETAMINOPHEN 325 MG/10.15 ML ORAL.SUSP PO ONE (19:58)
[2022-09-26] MEDS ORDERED: CYCLOBENZAPRINE HCL 10 MG TABLET (FP) PO ONE (19:58)
[2022-09-26] MEDS ORDERED: LIDOCAINE 5% TOPICAL PATCH TP ONE (19:58)
[2022-09-26] MEDS ORDERED: LIDOCAINE 5% TOPICAL PATCH ONE (20:04)
[2022-09-26] MEDS ORDERED: CYCLOBENZAPRINE HCL 5 MG TABLET ONE (20:04)
[2022-09-26] MEDS ORDERED: ACETAMINOPHEN 325 MG TABLET (FP) ONE (20:04)
[2022-09-26] MEDS ORDERED: LIDOCAINE PATCH REMOVAL MC SCH (22:00)
== END 2022-09-26 22:18 | disposition home or self-care (01) ==
LOC: FER 19:20
DX: M54.50 Low back pain, unspecified (principal); W10.8XXA Fall (on) (from) other stairs and steps, initial encounter
CPT/HCPCS: 72100-TC-FY; 99283-25

== ENCOUNTER 2024-02-17 10:12 | Emergency (ER) | payer OTHER ==
[2024-02-17 10:29] VITALS: TEMP 98.6; BMI 37.2
[2024-02-17 11:26] LABS: HEMATOCRIT 44.3 % (35.4-49); HEMOGLOBIN 14.6 G/dL (11.7-16.9); MCH 30.3 pg (25.7-33.7); MCHC 32.9 g/dl (32.0-35.9); MEAN CELL VOLUME 92.2 fl (80-96); MEAN PLT VOLUME 8.5 fl (7.5-11.1); PLATELET COUNT 258.2 10^3/uL (134-434); RBC 4.81 10^6/uL (4.00-5.60); RDW 14.3 % (11.9-15.9); WHITE BLOOD COUNT 7.5 10^3/uL (4.0-10.8)
[2024-02-17 11:28] LABS: ALBUMIN 4.4 g/dl (3.4-5.0); ALK PHOS 61 U/L (45-117); ANION GAP 7 mmol/L (4-13); BILIRUBIN,TOTAL 0.4 mg/dl (0.2-1); CALCIUM 10.2 mg/dl (8.5-10.1); CHLORIDE 103 mmol/L (98-107); CO2 29 mmol/L (21-32); CREATININE 0.8 mg/dl (0.6-1.3); GLUCOSE,RANDOM 145 mg/dl (74-106); POTASSIUM 4.2 mmol/L (3.5-5.1); SGOT/AST 18 U/L (15-37); SGPT/ALT 41 U/L (7-52); SODIUM 139 mmol/L (136-145); TOT PROT 6.7 g/dl (6.4-8.2)
[2024-02-17] MEDS ORDERED: ALBUTEROL SO4 2.5/IPRATROPIUM 0.5 INH SOL 3 ML VIAL.NEB. NEB ONE (11:37)
[2024-02-17] MEDS: ALBUTEROL SO4 2.5/IPRATROPIUM 0.5 INH SOL 3 ML VIAL.NEB. NEB ONE (11:40)
[2024-02-17 11:44] VITALS: BP 130/71; PULSE 73; RESP 15
[2024-02-17 12:53] LABS: PLATELET ESTIMATE ADEQUATE
== END 2024-02-17 12:35 | disposition home or self-care (01) ==
LOC: FER 10:12
PROC: 3E0F7GC Introduction of Other Therapeutic Substance into Respiratory Tract, Via Natural or Artificial Opening (ICD-10-PCS; principal; 2024-02-17)
DX: R06.02 Shortness of breath (principal)
CPT/HCPCS: 36415; 71046-TC-FY; 80053; 83880; 84484; 85027; 93005; 99285-25

== ENCOUNTER 2024-04-22 07:11 | Observation (INO) | payer OTHER ==
[2024-04-22 08:44] LABS: ALBUMIN 4.3 g/dl (3.4-5.0); ALK PHOS 49 U/L (45-117); ANION GAP 8 mmol/L (4-13); BILIRUBIN,TOTAL 0.6 mg/dl (0.2-1); CALCIUM 9.7 mg/dl (8.5-10.1); CHLORIDE 93 mmol/L (98-107); CO2 26 mmol/L (21-32); CREATININE 0.9 mg/dl (0.6-1.3); GLUCOSE,RANDOM 143 mg/dl (74-106); POTASSIUM 4.1 mmol/L (3.5-5.1); SGOT/AST 18 U/L (15-37); SGPT/ALT 35 U/L (7-52); SODIUM 127 mmol/L (136-145); TOT PROT 6.3 g/dl (6.4-8.2)
[2024-04-22 08:47] LABS: HEMOGLOBIN 13.8 G/dL (11.7-16.9); MCH 28.9 pg (25.7-33.7); MEAN CELL VOLUME 90.6 fl (80-96); MEAN PLT VOLUME 8.2 fl (7.5-11.1); PLATELET COUNT 281.1 10^3/uL (134-434); RBC 4.75 10^6/uL (4.00-5.60); RDW 14.3 % (11.9-15.9); WHITE BLOOD COUNT 7.8 10^3/uL (4.0-10.8)
[2024-04-22 09:39] LABS: PLATELET ESTIMATE ADEQUATE
[2024-04-22 10:05] LABS: CALCIUM OXALATE CRYSTALS MODERATE /hpf (NONE SEEN); EPITHELIAL CELLS 0-5 /hpf
[2024-04-22 11:20] LABS: URINE BARBITURATES NEGATIVE (NEGATIVE); URINE BENZODIAZEPINES NEGATIVE (NEGATIVE)
[2024-04-22 11:21] LABS: COCAINE, UR NEGATIVE (NEGATIVE); METHADONE, UR NEGATIVE (NEGATIVE); OPIATES, URI NEGATIVE (NEGATIVE); PHENCYCLIDINE,URINE NEGATIVE (NEGATIVE)
[2024-04-22 11:23] LABS: URINE AMPHETAMINES NEGATIVE (NEGATIVE)
[2024-04-22] MEDS ORDERED: metFORMIN HCL 500 MG TABLET (FP) ONE ×2 (21:50→21:51)
[2024-04-22] MEDS ORDERED: ATORVASTATIN CA 20 MG TABLET (FP) ONE (21:50)
[2024-04-22] MEDS ORDERED: ASPIRIN COATED 81 MG TABLET.EC ONE (21:50)
[2024-04-22] MEDS ORDERED: TAMSULOSIN HCL 0.4 MG CAP ONE (21:51)
[2024-04-22] MEDS: ASPIRIN COATED 81 MG TABLET.EC PO STA (22:03)
[2024-04-22] MEDS: TAMSULOSIN HCL 0.4 MG CAP PO ONE (22:03)
[2024-04-22] MEDS: ATORVASTATIN CA 20 MG TABLET (FP) PO ONE (22:03)
[2024-04-22] MEDS: CHOLECALCIFEROL (VIT D3) 1,000 UNIT (25 MCG) TABLET PO ONE (22:03)
[2024-04-22] MEDS: metFORMIN HCL 500 MG TABLET (FP) PO ONE (22:03)
[2024-04-23 06:30] VITALS: RESP 18
[2024-04-23] MEDS: VENLAFAXINE HCL 75 MG E.R. CAPSULES PO SCH (10:12)
[2024-04-23] MEDS: risperiDONE 1 MG TABLET PO SCH (10:12)
[2024-04-23] MEDS: FINASTERIDE 5 MG TABLET (FP) PO SCH (10:12)
[2024-04-23] MEDS: DIVALPROEX NA *ER* EXTEND REL 500 MG TABLET.SA (FP) PO SCH (10:12)
[2024-04-23] MEDS: ASPIRIN 81 MG CHEWABLE TABLETS PO SCH (10:12)
[2024-04-23 11:33] VITALS: BP 137/90; PULSE 75; TEMP 98.4; BMI 36.1
[2024-04-23] MEDS ORDERED: ATORVASTATIN CA 20 MG TABLET (FP) PO SCH (22:00)
[2024-04-24] MEDS ORDERED: TAMSULOSIN HCL 0.4 MG CAP PO SCH (08:30)
== END 2024-04-23 13:30 | disposition short-term general hospital (02) ==
LOC: FER 07:11 → FM/S 04-23 07:52
DX: R45.851 Suicidal ideations (principal); F32.A Depression, unspecified; R45.84 Anhedonia; I11.9 Hypertensive heart disease without heart failure; E66.9 Obesity, unspecified; E78.5 Hyperlipidemia, unspecified; G47.33 Obstructive sleep apnea (adult) (pediatric); N40.0 Benign prostatic hyperplasia without lower urinary tract symptoms; I25.10 Atherosclerotic heart disease of native coronary artery without angina pectoris
CPT/HCPCS: 0241U-QW; 36415; 70450-TC; 80053; 80307; 81003; 81015; 84443; 84484; 85027; 87086; 93005; 99285-25; G0378

== ENCOUNTER 2024-08-16 12:53 | Emergency (ER) | payer OTHER ==
[2024-08-16 13:02] VITALS: BP 111/64; PULSE 73; RESP 18; TEMP 98.2; BMI 33.7
[2024-08-16] MEDS ORDERED: ACETAMINOPHEN 325 MG TABLET (FP) ONE (13:53)
[2024-08-16] MEDS: ACETAMINOPHEN 500 MG TABLET (FP) PO ONE (14:09)
[2024-08-16 14:21] LABS: HEMATOCRIT 40.9 % (35.4-49); HEMOGLOBIN 13.6 G/dL (11.7-16.9); MCH 30.2 pg (25.7-33.7); MCHC 33.2 g/dl (32.0-35.9); MEAN CELL VOLUME 91.1 fl (80-96); PLATELET COUNT 304.4 10^3/uL (134-434); RBC 4.49 10^6/uL (4.00-5.60); RDW 14.2 % (11.9-15.9); WHITE BLOOD COUNT 7.8 10^3/uL (4.0-10.8)
[2024-08-16 14:33] LABS: ALBUMIN 4.1 g/dl (3.4-5.0); ALK PHOS 44 U/L (45-117); ANION GAP 11 mmol/L (4-13); BILIRUBIN,TOTAL 0.4 mg/dl (0.2-1); CALCIUM 10.1 mg/dl (8.5-10.1); CHLORIDE 101 mmol/L (98-107); CO2 24 mmol/L (21-32); CREATININE 0.9 mg/dl (0.6-1.3); GLUCOSE,RANDOM 157 mg/dl (74-106); MAGNESIUM 1.5 mg/dL (1.8-2.4); POTASSIUM 3.8 mmol/L (3.5-5.1); SGOT/AST 32 U/L (15-37); SGPT/ALT 68 U/L (7-52); SODIUM 136 mmol/L (136-145)
[2024-08-16 15:10] LABS: PLATELET ESTIMATE ADEQUATE
== END 2024-08-16 18:15 | disposition home or self-care (01) ==
LOC: FER 12:53
DX: R55 Syncope and collapse (principal); M25.511 Pain in right shoulder; R42 Dizziness and giddiness
CPT/HCPCS: 36415; 70450-TC; 71046-TC-FY; 73610-TC-RT-FY; 73630-TC-RT-FY; 80053; 83735; 84484; 85027; 93005; 99285-25